=== PATIENT | female | born 1990 | race Caucasian/White ===

== ENCOUNTER 2020-01-27 16:59 | Observation (INO) ==
[~2020-01-27 16:59] MED LIST: NICOTINE 7 MG PATCH TOPICAL PRN
[2020-01-27] MEDS ORDERED: 0.9 % SODIUM CHLORIDE 1,000 ML IV ONE (17:18)
[2020-01-27] MEDS ORDERED: HYDROmorphone 0.5 MG/0.5 ML SYRINGE IV ONE ×2 (17:18→18:53)
[2020-01-27] MEDS ORDERED: ONDANSETRON 4 MG/2 ML VIAL IV ONE (17:18)
--- NOTE | 2020-01-27 17:23 | Emergency Department Note ---
Female Urogenital HPI General Chief complaint: Flank Pain Stated complaint: kidney stone in left, obstructing Time Seen by Provider: 01/27/20 17:07 Source: patient Mode of arrival: ambulatory Limitations: no limitations History of Present Illness HPI Narrative: Narrative: 29-year-old female patient referred to the emergency department by her urologist for possible admission. She has known renal stone disease. She was seen by the urologist (Dr. Combs) earlier today. During her work-up she had a x-ray KUB performed showing multiple nonobstructing renal stones. Patient has been nauseated and vomiting profusely today. She is not able to keep either foods or fluids down at this time. She has known history of aortic valve replacement and is currently anticoagulated on Coumadin. There is concern that this needs to be managed prior to any intervention for her renal calculi. Today, patient continues to complain of nausea upon presentation. She complains of moderate tenderness to the left side of her abdomen. ROS: Denies systemic illness, fever, sweats, chills. Denies headaches, tinnitus, or vision changes. Denies runny nose, sinus congestion, or cough. Denies shortness of breath. Denies retrosternal chest pain or palpitations. Admits to abdominal pain, nausea, vomiting, or diarrhea. Admits to mild dysuria. Denies hematuria, urinary frequency, or urinary urgency. Admits to generalized weakness. Related Data Home Medications Medication Instructions Recorded Confirmed warfarin 10 mg tablet 15 mg PO 3XW 09/16/18 01/27/20 Allergies Allergy/AdvReac Type Severity Reaction Status Date / Time No Known Drug Allergies Allergy Verified 01/27/20 17:04 Review of Systems ROS ROS Narrative: Narrative: All systems ED: reviewed and negative except as stated. [facility] Narrative Patient History Narrative: Narrative: Medical/Surgical/Family History All Active Problems UPJ (ureteropelvic junction) obstruction (Acute) Renal stones (Acute) Pyelonephritis (Acute) Status post laser lithotripsy of ureteral calculus (Acute) History of recurrent UTIs (Acute) UTI (urinary tract infection) (Acute) History of kidney stones (Acute) Left leg pain (Acute) Tobacco abuse (Chronic) Pulmonary edema (Chronic) SOB (shortness of breath) (Chronic) Ovarian cyst (Chronic) Multiple contusions (Chronic) Hematuria (Chronic) Ureterolithiasis (Chronic) Nephrolithiasis (Chronic) Suicidal thoughts (Chronic) Heart murmur (Chronic) Pelvic pain (Chronic) Menometrorrhagia (Chronic) Dysmenorrhea (Chronic) Depression with anxiety (Chronic) ADHD (Chronic) Bipolar 1 disorder (Chronic) Supervision of other high risk pregnancies, second trimester (Chronic) Presence of prosthetic heart valve (Chronic) On anticoagulant therapy (Chronic) Tobacco use disorder complicating , childbirth, or puerperium, antepartum (Chronic) Obesity complicating in second trimester (Chronic) Abdominal pain (Chronic) Pain, dental (Chronic) UTI (urinary tract infection) (Chronic) Finger pain, left (Chronic) Contusion (Chronic) Medical History Abdominal pain (Chronic) ADHD (Chronic) Bicuspid aortic valve (Chronic) Bipolar 1 disorder (Chronic) Contusion (Chronic) Depression with anxiety (Chronic) Dysmenorrhea (Chronic) Finger pain, left (Chronic) Heart murmur (Chronic) Hematuria (Chronic) Menometrorrhagia (Chronic) Multiple contusions (Chronic) Nephrolithiasis (Chronic) Obesity complicating in second trimester (Chronic) On anticoagulant therapy (Chronic) Ovarian cyst (Chronic) Pain, dental (Chronic) Pelvic pain (Chronic) Presence of prosthetic heart valve (Chronic) Pulmonary edema (Chronic) SOB (shortness of breath) (Chronic) Suicidal thoughts (Chronic) Supervision of other high risk pregnancies, second trimester (Chronic) Tobacco abuse (Chronic) Tobacco use disorder complicating , childbirth, or puerperium, antepartum (Chronic) Ureterolithiasis (Chronic) UTI (urinary tract infection) (Chronic) Surgical History H/O lithotripsy (Acute) History of aortic valve replacement (Chronic ~04/2017) History of laparoscopy (Chronic ~08/09/15) Negative for endometriosis Family History Mother Bile acid esophageal reflux Diabetes Hypertension Hypercholesteremia Stomach ulcer Ovarian cancer, Onset Age: 45 Grandmother , 70 CVA (cerebral vascular accident) Abnormal bruising Bleeding Clotting disorder Social History Smoking Status: Current every day smoker Alcohol Intake Frequency: does not drink Substance Use: does not use and marijuana Exam Narrative Narrative: Narrative: General Limitations: no limitations General appearance: Present other (Well-developed, well-nourished, morbidly obese 29-year-old female patient laying semirecumbent on the emergency room gurney in no acute distress. She is afebrile, mildly tachycardic with a heart rate of 102, her other vital signs are normal.) Head Head: Present normocephalic Eye Eye: Present normal appearance, PERRL and EOMI; Absent scleral icterus and conjunctival injection ENT ENT: Present normal oropharynx and mucous membranes moist Neck Neck: Present trachea midline; Absent lymphadenopathy and thyromegaly Chest Chest: Present symmetric chest wall rise Respiratory Respiratory: Present normal lung sounds bilaterally; Absent respiratory distress, wheezes, stridor, accessory muscle use and prolonged expiratory phase Cardiovascular Cardiovascular: Present regular rate, normal rhythm, systolic murmur and clicks; Absent diastolic murmur Adbominal Abdominal: Present soft, tenderness, normal bowel sounds and other (Patient body habitus is rather large making the abdominal exam difficult.); Absent distention, guarding, rebound and rigidity Expanded Abdominal Abdominal Tenderness: Present LLQ and moderate Extremities Extremities: Present normal inspection, full ROM and normal capillary refill Back Back: Present normal inspection and full ROM Neurological Neurological: Present alert and oriented X3 Psychiatric Psychiatric: Present normal affect and normal mood Skin Skin: Present warm (WNL), dry and normal color Course Course Course Narrative: Patient has known renal calculi and was just recently evaluated by her urologist today. A review of the urology note today Indicates the patient is suffering from UPJ obstruction on the left with likely renal stone. She is not tolerating oral fluids at home so it was thought best to try to admit her here to our facility. There is plan to try to aid place a stent tomorrow. Knowing this, I am going to order screening laboratory studies. We will also check a urine. No additional imaging is going to be performed because patient just had a x-ray KUB earlier today. She is nauseated somebody treat her with Zofran 4 mg IVP. We are to treat her pain with Dilaudid 0.5 mg IVP. I will rehydrate her with 1000 mL normal saline. Reevaluation(s) Reevaluation #1: Upon reevaluation patient was a bit uncomfortable and was given a second dose of Dilaudid 0.5 mg IVP. A review of her diagnostics show the following: CBC within normal limits. PT 16.6. INR 1.3. CMP within normal limits. Urinalysis showing cloudy yellow urine specific gravity 1.015, positive proteinuria, positive leukocyte Estrace, and significant RBCs. After reviewing all the data I discussed these findings with our hospitalist (Dr. Brewer) in order to get the patient admitted to the hospital for her renal stent tomorrow. At this time the hospitalist has consented to admit the patient here under observation. All further treatment decisions, modalities, and ultimate patient disposition will be carried out by the hospitalist. Time: 19:04 Vital Signs Vital signs: Vital Signs Temperature 98.3 F 01/27/20 17:00 Pulse Rate 102 H 01/27/20 17:00 Respiratory Rate 18 01/27/20 17:00 Blood Pressure 112/74 01/27/20 17:00 Pulse Oximetry (%) 99 01/27/20 17:00 Temperature 98.3 F 01/27/20 17:00 Pulse Rate 83 01/27/20 19:17 Respiratory Rate 18 01/27/20 17:00 Blood Pressure 117/70 01/27/20 19:17 Pulse Oximetry (%) 98 01/27/20 19:17 [facility] MDM Narrative Medical decision making narrative: Narrative: Lab Data Lab results reviewed: Yes I reviewed the patient's lab results. Result diagrams: 01/27/20 17:43 01/27/20 17:43 Labs: Lab Results 01/27/20 01/27/20 01/27/20 Range/Units 17:43 17:43 17:43 WBC 10.4 (4.5-11.0) K/mcL RBC 4.88 (4.00-5.20) M/mcL Hgb 13.3 (12.0-15.0) g/dL Hct 40.5 (36.0-48.0) % MCV 83.0 (80.0-100.0) fL MCH 27.3 (26.0-34.0) pg MCHC 32.8 (31.0-36.0) g/dL RDW 15.0 H (11.5-14.5) % Plt Count 223 (140-440) K/mcL MPV 10.7 H (7.4-10.4) fL Neut % (Auto) 76.8 (38.0-78.0) % Lymph % (Auto) 14.3 L (15.0-49.0) % [place] % (Auto) 6.4 (1.0-12.0) % Eos % (Auto) 1.9 (0.0-7.0) % Baso % (Auto) 0.6 (0.0-2.0) % Lymph # (Auto) 1.48 L (1.50-4.80) K/mcL [place] # (Auto) 0.66 (0.10-0.90) K/mcL Eos # (Auto) 0.20 (0.00-0.70) K/mcL Baso # (Auto) 0.06 (0.00-0.20) K/mcL Absolute Neutrophils 7.98 (1.80-8.00) K/mcL PT 16.6 H (11.9-14.5) sec INR 1.3 H (0.9-1.1) Sodium 136 (133-145) mmol/L Potassium 3.7 (3.3-5.1) mmol/L Chloride 104 (96-108) mmol/L Carbon Dioxide 24 (22-30) mmol/L Anion Gap 8.0 (8.0-16.0) BUN 17 (6-20) mg/dL Creatinine 0.7 (0.6-1.1) mg/dL GFR Calculation 118 Glucose 84 (70-105) mg/dL Calcium 9.1 (8.6-10.4) mg/dL Total Bilirubin 0.4 (0.1-1.0) mg/dL AST 20 (<32) U/L ALT 16 (<40) U/L Alkaline Phosphatase 79 (39-117) U/L Total Protein 7.3 (5.9-8.4) gm/dL Albumin 4.1 (3.2-5.2) gm/dL Globulin 3.2 (2.2-3.7) gm/dL Albumin/Globulin Ratio 1.3 (1.0-2.3) Urine Color Urine Appearance (Clear) Urine pH (5.0-9.0) Ur Specific [place] (1.000-1.035) Urine Protein (Negative) mg/dL Urine Glucose (UA) (Negative) mg/dL Urine Ketones (Negative) mg/dL Urine Occult Blood (Negative) mg/dL Urine Nitrate (Negative) Urine Bilirubin (Negative) mg/dL Urine Urobilinogen mg/dL Ur Leukocyte Esterase (Negative) /ug Urine RBC (0-1) /hpf Urine WBC (0-4) /hpf Ur Squamous Epith Cells (0-4) /hpf Urine Bacteria (0) /hpf Urine Mucus (None) /hpf Ur Culture Indicated? 01/27/20 Range/Units 19:04 WBC (4.5-11.0) K/mcL RBC (4.00-5.20) M/mcL Hgb (12.0-15.0) g/dL Hct (36.0-48.0) % MCV (80.0-100.0) fL MCH (26.0-34.0) pg MCHC (31.0-36.0) g/dL RDW (11.5-14.5) % Plt Count (140-440) K/mcL MPV (7.4-10.4) fL Neut % (Auto) (38.0-78.0) % Lymph % (Auto) (15.0-49.0) % [place] % (Auto) (1.0-12.0) % Eos % (Auto) (0.0-7.0) % Baso % (Auto) (0.0-2.0) % Lymph # (Auto) (1.50-4.80) K/mcL [place] # (Auto) (0.10-0.90) K/mcL Eos # (Auto) (0.00-0.70) K/mcL Baso # (Auto) (0.00-0.20) K/mcL Absolute Neutrophils (1.80-8.00) K/mcL PT (11.9-14.5) sec INR (0.9-1.1) Sodium (133-145) mmol/L Potassium (3.3-5.1) mmol/L Chloride (96-108) mmol/L Carbon Dioxide (22-30) mmol/L Anion Gap (8.0-16.0) BUN (6-20) mg/dL Creatinine (0.6-1.1) mg/dL GFR Calculation Glucose (70-105) mg/dL Calcium (8.6-10.4) mg/dL Total Bilirubin (0.1-1.0) mg/dL AST (<32) U/L ALT (<40) U/L Alkaline Phosphatase (39-117) U/L Total Protein (5.9-8.4) gm/dL Albumin (3.2-5.2) gm/dL Globulin (2.2-3.7) gm/dL Albumin/Globulin Ratio (1.0-2.3) Urine Color Yellow Urine Appearance Hazy A (Clear) Urine pH 6.0 (5.0-9.0) Ur Specific [place] 1.018 (1.000-1.035) Urine Protein 100 A (Negative) mg/dL Urine Glucose (UA) Negative (Negative) mg/dL Urine Ketones Negative (Negative) mg/dL Urine Occult Blood 0.20 (Negative) mg/dL Urine Nitrate Negative (Negative) Urine Bilirubin Negative (Negative) mg/dL Urine Urobilinogen Negative mg/dL Ur Leukocyte Esterase 75 A (Negative) /ug Urine RBC 49 H (0-1) /hpf Urine WBC 73 H (0-4) /hpf Ur Squamous Epith Cells 2 (0-4) /hpf Urine Bacteria Few A (0) /hpf Urine Mucus Few A (None) /hpf Ur Culture Indicated? yes Radiology Data Radiology results reviewed: Yes I reviewed the patient's radiology results. Radiology results narrative: Ordering Physician: Navi Combs M.D. Date of Service: 01/27/20 Procedure(s): XR abdomen 1V Accession Number(s): [id number] CLINICAL INFORMATION: Z87.442 Personal history of urinary calculi COMPARISON: 09/21/2019 FINDINGS: Two nonobstructing stones overlying the inferior calyx of the right kidney: 11 mm and 4 mm respectively. An 8 mm calcification overlies the inferior calyx of the left kidney. No stones overlie either ureter or urinary bladder. Left-sided pelvic phleboliths are stable. Stool gas pattern is normal. No free air, soft tissue mass or organomegaly. IMPRESSION: Two nonobstructing stones overlying the inferior calyx of the right kidney: 11 mm and 4 mm respectively. 8 mm nonobstructing calculus overlying inferior calyx of the left kidney. On the prior study, there were multiple stones overlying the inferior left renal pelvis and inferior calyces. Only the 8 mm solitary stone remains. The two right-sided stones are stable Interpreted and Authenticated by: Kedar Kyle 01/27/20 Discharge Plan Patient/Caregiver Discharge Instructions Pt seen by [employer]DER/PA only: Yes Clinical Impression: UPJ (ureteropelvic junction) obstruction, Renal stones, Abdominal pain Patient Disposition: Xfer As Outpt/Obs ([facility]) Condition: Good
[2020-01-27 18:22] LABS: Basophils # (Auto) 0.06 K/mcL (0.00-0.20); Basophils % (Auto) 0.6 % (0.0-2.0); Eosinophils % (Auto) 1.9 % (0.0-7.0); Hematocrit 40.5 % (36.0-48.0); Hemoglobin 13.3 g/dL (12.0-15.0); Lymphocytes # (Auto) 1.48 K/mcL (1.50-4.80); Lymphocytes % (Auto) 14.3 % (15.0-49.0); Mean Corpuscular HGB Conc 32.8 g/dL (31.0-36.0); Mean Platelet Volume 10.7 fL (7.4-10.4); Monocytes # (Auto) 0.66 K/mcL (0.10-0.90); Monocytes % (Auto) 6.4 % (1.0-12.0); Neutrophils % (Auto) 76.8 % (38.0-78.0); Platelet Count 223 K/mcL (140-440); RBC 4.88 M/mcL (4.00-5.20); WBC 10.4 K/mcL (4.5-11.0)
[2020-01-27 18:44] LABS: ALT/SGPT 16 U/L (<40); AST/SGOT 20 U/L (<32); Albumin 4.1 gm/dL (3.2-5.2); Albumin/Globulin Ratio 1.3 (1.0-2.3); Alkaline Phosphatase 79 U/L (39-117); Bilirubin,Total 0.4 mg/dL (0.1-1.0); Blood Urea Nitrogen 17 mg/dL (6-20); Calcium 9.1 mg/dL (8.6-10.4); Carbon Dioxide 24 mmol/L (22-30); Chloride 104 mmol/L (96-108); Globulin 3.2 gm/dL (2.2-3.7); Glomerular Filtration Rate 118; Glucose 84 mg/dL (70-105)
[2020-01-27 18:59] LABS: INR 1.3 (0.9-1.1); Prothrombin Time 16.6 sec (11.9-14.5)
[2020-01-27 19:24] LABS: Appearance,Urine HAZY (Clear); Bacteria,Urine FEW /hpf (0); Bilirubin,Urine Negative (Negative); Color,Urine YELLOW; Culture Indicated,Urine yes; Glucose,Urine (UA) Negative (Negative); Ketones,Urine Negative (Negative); Leukocyte Esterase,Urine 75 /ug (Negative); Mucus,Urine FEW /hpf; Nitrate,Urine Negative (Negative); Protein,Urine 100 mg/dL (Negative); Specific Gravity,Urine 1.018 (1.000-1.035); Urine RBC 49 /hpf (0-1); Urine Squamous Epithelial Cell 2 /hpf (0-4); Urine WBC 73 /hpf (0-4); Urobilinogen,Urine Negative
[2020-01-27] MEDS ORDERED: HYDROmorphone 1 MG/ML SYRINGE IV PRN (19:28)
[2020-01-27] MEDS ORDERED: ACETAMINOPHEN 325 MG TABLET PO PRN ×2 (19:28→20:31)
[2020-01-27] MEDS ORDERED: ONDANSETRON 4 MG/2 ML VIAL IV PRN (19:28)
[2020-01-27] MEDS ORDERED: oxyCODONE HCL 5 MG TABLET PO PRN (19:28)
[2020-01-27] MEDS ORDERED: cefTRIAXone 1 GM in DEXTROSE 5% IN WATER 50 ML IV SCH (19:30)
[2020-01-27] MEDS ORDERED: 0.9 % SODIUM CHLORIDE 1,000 ML IV SCH (19:30)
[2020-01-27] MEDS ORDERED: NICOTINE 7 MG PATCH TOPICAL PRN (19:34)
--- NOTE | 2020-01-27 19:44 | Internal Med History&Physical ---
HPI History of Present Illness Patient information: Note initiated : 01/27/20 at 7:40 pm Service Date, if different from initiated Date: [] Patient: Zeinab Morris a 29 y/o F admitted on for kidney stone in left, obstructing. Chief Complaint: [] History of present illness: Ms. Morris is a 29 year old F with a past medical history of recurrent kidney stone, currently smoker, morbid obesity, and status post mechanical aortic valve replacement on long-term anticoagulation with warfarin who was referred to the ER due to kidney stone, nausea and vomiting by urologist Dr. Combs. As per patient, she started to have constant left lower abdominal pain at about 9 PM yesterday afternoon associated with nausea and vomiting. The pain is sharp in nature and 6 out of 10 in severity, radiating to her back and perineal area. She has been having watery diarrhea 4 times a day for 4 days. When I saw in the ER, other than the symptoms mentioned above, she denied headache, dizziness, chest pain, shortness of breath, fever, chills, or dysuria. She underwent a surgery with Dr. Gunn 10/2019 for kidney stones. Patient has a history of bipolar disease and depression. She denies any suicidal ideation. Review of Systems Review of systems: Positive for abdominal pain, nausea, vomiting, and diarrhea. All other systems were reviewed and are negative. PFSH PFSH All Active Problems UPJ (ureteropelvic junction) obstruction (Acute) Renal stones (Acute) Pyelonephritis (Acute) Status post laser lithotripsy of ureteral calculus (Acute) History of recurrent UTIs (Acute) UTI (urinary tract infection) (Acute) History of kidney stones (Acute) Left leg pain (Acute) Tobacco abuse (Chronic) Pulmonary edema (Chronic) SOB (shortness of breath) (Chronic) Ovarian cyst (Chronic) Multiple contusions (Chronic) Hematuria (Chronic) Ureterolithiasis (Chronic) Nephrolithiasis (Chronic) Suicidal thoughts (Chronic) Heart murmur (Chronic) Pelvic pain (Chronic) Menometrorrhagia (Chronic) Dysmenorrhea (Chronic) Depression with anxiety (Chronic) ADHD (Chronic) Bipolar 1 disorder (Chronic) Supervision of other high risk pregnancies, second trimester (Chronic) Presence of prosthetic heart valve (Chronic) On anticoagulant therapy (Chronic) Tobacco use disorder complicating , childbirth, or puerperium, antepartum (Chronic) Obesity complicating in second trimester (Chronic) Abdominal pain (Chronic) Pain, dental (Chronic) UTI (urinary tract infection) (Chronic) Finger pain, left (Chronic) Contusion (Chronic) Medical History Abdominal pain (Chronic) ADHD (Chronic) Bicuspid aortic valve (Chronic) Bipolar 1 disorder (Chronic) Contusion (Chronic) Depression with anxiety (Chronic) Dysmenorrhea (Chronic) Finger pain, left (Chronic) Heart murmur (Chronic) Hematuria (Chronic) Menometrorrhagia (Chronic) Multiple contusions (Chronic) Nephrolithiasis (Chronic) Obesity complicating in second trimester (Chronic) On anticoagulant therapy (Chronic) Ovarian cyst (Chronic) Pain, dental (Chronic) Pelvic pain (Chronic) Presence of prosthetic heart valve (Chronic) Pulmonary edema (Chronic) SOB (shortness of breath) (Chronic) Suicidal thoughts (Chronic) Supervision of other high risk pregnancies, second trimester (Chronic) Tobacco abuse (Chronic) Tobacco use disorder complicating , childbirth, or puerperium, ante (Chronic) Ureterolithiasis (Chronic) UTI (urinary tract infection) (Chronic) Surgical History H/O lithotripsy (Acute) History of aortic valve replacement (Chronic ~04/2017) History of laparoscopy (Chronic ~08/09/15) Negative for endometriosis Family History Mother Bile acid esophageal reflux Diabetes Hypertension Hypercholesteremia Stomach ulcer Ovarian cancer, Onset Age: 45 Grandmother , 70 CVA (cerebral vascular accident) Abnormal bruising Bleeding Clotting disorder Social History marital status: single occupation: Stay at home mother physical activity: walking frequency: daily smoking status: Current every day smoker tobacco type: cigarettes per day: 10 pack-years: 18 alcohol intake frequency: does not drink substance use type: does not use and marijuana additional history: Patient smoke 2 "hits" of marijuana 3 weeks ago and nothing prior for 4 years. MEDS/ALLERGIES Home Medications and Allergies Home Medications Medication Instructions Recorded Confirmed Type warfarin 10 mg tablet 15 mg PO 3XW 09/16/18 01/27/20 History Allergies Allergy/AdvReac Type Severity Reaction Status Date / Time No Known Drug Allergies Allergy Verified 01/27/20 17:04 EXAM Constitutional Vitals: Temp Pulse Resp BP Pulse Ox 98.3 F 85 18 108/70 99 01/27/20 17:00 01/27/20 19:04 01/27/20 17:00 01/27/20 19:04 01/27/20 19:04 Additional findings Additional findings: General - No acute distress morbid obesity Eyes - PERRLA, EOM intact ENT no rhinorrhea, no noticeable or palpable swelling, no redness or rash around throat or on face Neck supple, no JVD, no thyromegaly Respiratory: Lungs -clear, no wheezing or crackles. Cardiovascular - RRR, mild to moderate systolic murmur, no r/g, GI - Normal bowel sounds, no distended, soft. Mild tenderness over left upper and left lower abdomen. Moderate to severe left CVA tenderness. Extremeties - No edema, cyanosis or clubbing Hemo/lymphatic/immune no lymphadenopathy Neurological Alert and oriented x 3, no focal neurological deficits. Psychiatry flat affect DATA Data Completed and Pending Labs: Labs from last 24 hours 01/27/20 01/27/20 01/27/20 19:04 17:43 17:43 WBC RBC Hgb Hct MCV MCH MCHC RDW Plt Count MPV Neut % (Auto) Lymph % (Auto) [place] % (Auto) Eos % (Auto) Baso % (Auto) Lymph # (Auto) [place] # (Auto) Eos # (Auto) Baso # (Auto) Absolute Neutrophils PT 16.6 H INR 1.3 H Sodium 136 Potassium 3.7 Chloride 104 Carbon Dioxide 24 Anion Gap 8.0 BUN 17 Creatinine 0.7 GFR Calculation 118 Glucose 84 Calcium 9.1 Total Bilirubin 0.4 AST 20 ALT 16 Alkaline Phosphatase 79 Total Protein 7.3 Albumin 4.1 Globulin 3.2 Albumin/Globulin Ratio 1.3 Urine Color Yellow Urine Appearance Hazy A Urine pH 6.0 Ur Specific [place] 1.018 Urine Protein 100 A Urine Glucose (UA) Negative Urine Ketones Negative Urine Occult Blood 0.20 Urine Nitrate Negative Urine Bilirubin Negative Urine Urobilinogen Negative Ur Leukocyte Esterase 75 A Urine RBC 49 H Urine WBC 73 H Ur Squamous Epith Cells 2 Urine Bacteria Few A Urine Mucus Few A Ur Culture Indicated? yes 01/27/20 17:43 WBC 10.4 RBC 4.88 Hgb 13.3 Hct 40.5 MCV 83.0 MCH 27.3 MCHC 32.8 RDW 15.0 H Plt Count 223 MPV 10.7 H Neut % (Auto) 76.8 Lymph % (Auto) 14.3 L [place] % (Auto) 6.4 Eos % (Auto) 1.9 Baso % (Auto) 0.6 Lymph # (Auto) 1.48 L [place] # (Auto) 0.66 Eos # (Auto) 0.20 Baso # (Auto) 0.06 Absolute Neutrophils 7.98 PT INR Sodium Potassium Chloride Carbon Dioxide Anion Gap BUN Creatinine GFR Calculation Glucose Calcium Total Bilirubin AST ALT Alkaline Phosphatase Total Protein Albumin Globulin Albumin/Globulin Ratio Urine Color Urine Appearance Urine pH Ur Specific [place] Urine Protein Urine Glucose (UA) Urine Ketones Urine Occult Blood Urine Nitrate Urine Bilirubin Urine Urobilinogen Ur Leukocyte Esterase Urine RBC Urine WBC Ur Squamous Epith Cells Urine Bacteria Urine Mucus Ur Culture Indicated? A/P Narrative A/P Narrative: 1. Ureteropelvic junction stone 2. Recurrent nephrolithiasis 3. Hydronephrosis, left Urology Dr. Combs consult Will possibly have will a stent placement tomorrow N.p.o. after midnight IV fluid Pain management including IV Dilaudid Patient is on anticoagulation, INR 1.3 today 4. Tobacco dependence Smoking cessation counseling Nicotine patch 5. 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 Subtherapeutic INR Patient has been on Coumadin, INR 1.3 today. Due to recent TURP procedure, she stopped and restarted warfarin recently INR target range 2.5-3.5 Continue warfarin, dosing by pharmacy 7. Morbid obesity Follow up with PCP 8. Dehydration IV fluid 9. UTI? Urine culture Rocephin 10. Proteinuria and hematuria will treat UTI and kidney stone first f/u with pcp and repeat UA afterwards 11. Diarrhea C. difficile IV fluid 12. DVT prophylaxis: Warfarin 13. CODE STATUS: Cold Reduction Roller Spent With Patient Time: Total time spent is greater than 50% in coordination of care (as documented) at patient's floor/unit and/or counseling patient:
[2020-01-27] MEDS ORDERED: WARFARIN PO SCH ×2 (19:45→20:31)
[2020-01-27] MEDS: 0.9 % SODIUM CHLORIDE 1,000 ML IV SCH (20:44)
[2020-01-27] MEDS: cefTRIAXone 1 GM VIAL IV SCH (20:45)
[2020-01-27] MEDS: 0.9 % SODIUM CHLORIDE 10 ML SYRINGE IV SCH (20:54)
[2020-01-27] MEDS: oxyCODONE HCL 5 MG TABLET PO PRN (21:00)
[2020-01-27] MEDS ORDERED: DOCUSATE SODIUM 100 MG CAPSULE PO SCH (21:00)
[2020-01-27] MEDS: HYDROmorphone 1 MG/ML SYRINGE IV PRN (21:01)
[2020-01-27] MEDS: DOCUSATE SODIUM 100 MG CAPSULE PO SCH (21:06)
[2020-01-27] MEDS ORDERED: 0.9 % SODIUM CHLORIDE 10 ML SYRINGE IV SCH (22:00)
[2020-01-28] MEDS: oxyCODONE HCL 5 MG TABLET PO PRN (01:18)
[2020-01-28] MEDS: HYDROmorphone 1 MG/ML SYRINGE IV PRN ×6 (01:33→15:38)
[2020-01-28] MEDS: ONDANSETRON 4 MG/2 ML VIAL IV PRN ×2 (01:34→11:35)
[2020-01-28] MEDS: 0.9 % SODIUM CHLORIDE 10 ML SYRINGE IV SCH ×2 (05:26→13:55)
[2020-01-28 06:32] LABS: Basophils # (Auto) 0.05 K/mcL (0.00-0.20); Basophils % (Auto) 0.5 % (0.0-2.0); Eosinophils # (Auto) 0.35 K/mcL (0.00-0.70); Eosinophils % (Auto) 3.4 % (0.0-7.0); Hematocrit 35.7 % (36.0-48.0); Hemoglobin 11.5 g/dL (12.0-15.0); Lymphocytes # (Auto) 2.07 K/mcL (1.50-4.80); Lymphocytes % (Auto) 19.9 % (15.0-49.0); Mean Corpuscular HGB Conc 32.2 g/dL (31.0-36.0); Mean Platelet Volume 10.7 fL (7.4-10.4); Monocytes # (Auto) 0.75 K/mcL (0.10-0.90); Monocytes % (Auto) 7.2 % (1.0-12.0); Platelet Count 202 K/mcL (140-440); Red Cell Distribution Width 15.1 % (11.5-14.5); WBC 10.4 K/mcL (4.5-11.0)
[2020-01-28 07:02] LABS: ALT/SGPT 13 U/L (<40); AST/SGOT 15 U/L (<32); Albumin 3.6 gm/dL (3.2-5.2); Albumin/Globulin Ratio 1.5 (1.0-2.3); Alkaline Phosphatase 67 U/L (39-117); Bilirubin,Total 0.4 mg/dL (0.1-1.0); Blood Urea Nitrogen 16 mg/dL (6-20); Calcium 8.3 mg/dL (8.6-10.4); Carbon Dioxide 22 mmol/L (22-30); Chloride 107 mmol/L (96-108); Globulin 2.4 gm/dL (2.2-3.7); Glomerular Filtration Rate 118; Glucose 91 mg/dL (70-105); Phosphorous 3.2 mg/dL (2.5-4.5)
[2020-01-28] MEDS: 0.9 % SODIUM CHLORIDE 1,000 ML IV SCH (08:34)
[2020-01-28] MEDS: cefTRIAXone 1 GM VIAL IV SCH (09:03)
[2020-01-28] MEDS: DOCUSATE SODIUM 100 MG CAPSULE PO SCH (10:12)
[2020-01-28 10:27] LABS: INR 1.2 (0.9-1.1); Prothrombin Time 15.5 sec (11.9-14.5)
[2020-01-28 11:41] LABS: HCG,Serum Negative
--- NOTE | 2020-01-28 15:48 | Internal Med Progress Note ---
SUBJECTIVE Subjective Patient information: Note initiated : 01/28/20 at 3:44 pm Service Date, if different from initiated Date: [] Patient: Zeinab Morris a 29 y/o F admitted on 01/27/20 for kidney stone in left, obstructing. Chief Complaint: [] Ms. Morris is a 29 year old F with a past medical history of recurrent kidney stone, currently smoker, morbid obesity, and status post mechanical aortic valve replacement on long-term anticoagulation with warfarin who was referred to the ER due to kidney stone, nausea and vomiting by urologist Dr. Combs. As per patient, she started to have constant left lower abdominal pain at about 9 PM yesterday afternoon associated with nausea and vomiting. The pain is sharp in nature and 6 out of 10 in severity, radiating to her back and perineal area. She has been having watery diarrhea 4 times a day for 4 days. When I saw in the ER, other than the symptoms mentioned above, she denied headache, dizziness, chest pain, shortness of breath, fever, chills, or dysuria. She underwent a surgery with Dr. Gunn 10/2019 for kidney stones. Patient has a history of bipolar disease and depression. She denies any suicidal ideation. 01/27 Pt feels better, still has pain, less in severity. Has one BM this morning. has mild n but has not vomited. She will have stent placement today by Dr. Combs. No overnight event Review of Systems Review of systems: Positive for abdominal pain, nausea, vomiting, and diarrhea. All other systems were reviewed and are negative. Constitutional Vitals: Vital Signs Temp Pulse Resp BP Pulse Ox 97.9 F 67 16 107/65 91 01/28/20 12:00 01/28/20 12:00 01/28/20 12:00 01/28/20 12:00 01/28/20 12:00 Period Temp Pulse Resp BP Sys/Amaya Pulse Ox Last 24 Hr 97.3 F-98.3 F 67-102 16-18 98-119/60-85 91-100 Intake and Output 01/28/20 01/28/20 01/28/20 05:59 13:59 21:59 Intake Total 777 712 Output Total 600 200 200 Balance 177 512 -200 Intake & Output: Intake & Output 01/28/20 01/28/2001/27/20 05:59 13:59 21:59 Intake Total 777 712 Output Total 600 200 200 Balance 177 512 -200 Intake: IV 277 712 Sodium Chloride 0.9% 1,000 ml @ 277 712 100 mls/hr IV .Q10H [facility] Rx#: [id number] Oral 500 Output: Void Amount 600 200 200 Other: Urine Appearance Clear Urine Color Bright Yellow Additional findings Additional findings: General - No acute distress morbid obesity Eyes - PERRLA, EOM intact ENT no rhinorrhea, no noticeable or palpable swelling, no redness or rash around throat or on face Neck supple, no JVD, no thyromegaly Respiratory: Lungs -clear, no wheezing or crackles. Cardiovascular - RRR, mild to moderate systolic murmur, no r/g, GI - Normal bowel sounds, no distended, soft. Mild tenderness over left upper and left lower abdomen. Moderate to severe left CVA tenderness (improving). Extremeties - No edema, cyanosis or clubbing Hemo/lymphatic/immune no lymphadenopathy Neurological Alert and oriented x 3, no focal neurological deficits. Psychiatry flat affect OBJ DATA Labs CBC & Chem 7: 01/28/20 05:17 01/28/20 05:17 Labs: Abnormal Lab Results 01/28/20 01/28/20 01/28/20 08:57 05:17 05:17 Hgb 11.5 L Hct 35.7 L RDW 15.1 H MPV 10.7 H Lymph % (Auto) Lymph # (Auto) PT 15.5 H INR 1.2 H Calcium 8.3 L Urine Appearance Urine Protein Ur Leukocyte Esterase Urine RBC Urine WBC Urine Bacteria Urine Mucus 01/27/20 01/27/20 01/27/20 19:04 17:43 17:43 Hgb Hct RDW 15.0 H MPV 10.7 H Lymph % (Auto) 14.3 L Lymph # (Auto) 1.48 L PT 16.6 H INR 1.3 H Calcium Urine Appearance Hazy A Urine Protein 100 A Ur Leukocyte Esterase 75 A Urine RBC 49 H Urine WBC 73 H Urine Bacteria Few A Urine Mucus Few A Meds: Medications Acetaminophen (Tylenol) 650 mg PO Q6HP PRN; Protocol PRN Reason: Per Pain Protocol/Fever > 101 Last Admin: 01/28/20 13:54 Dose: 650 mg Documented by: Ceftriaxone Sodium (Rocephin) 1 gm IV Q24H [facility] Last Admin: 01/28/20 09:03 Dose: 1 gm Documented by: Docusate Sodium (Colace) 100 mg PO BID [facility] Last Admin: 01/28/20 10:12 Dose: Not Given Documented by: Hydromorphone HCl (Dilaudid) 1 mg IV Q2HP PRN; Protocol PRN Reason: Per Pain Protocol Last Admin: 01/28/20 15:38 Dose: 1 mg Documented by: Sodium Chloride (Sodium Chloride 0.9%) 1,000 mls @ 100 mls/hr IV .Q10H [facility] Last Admin: 01/28/20 08:34 Dose: 100 mls/hr Documented by: Nicotine (Nicoderm) 7 mg TOPICAL DAILY@1000 PRN PRN Reason: Anxiety Ondansetron HCl (Zofran) 4 mg IV Q6HP PRN PRN Reason: Nausea And Vomiting Last Admin: 01/28/20 11:35 Dose: 4 mg Documented by: Oxycodone HCl (Roxicodone) 5 mg PO Q4HP PRN; Protocol PRN Reason: Per Pain Protocol Last Admin: 01/28/20 01:18 Dose: 5 mg Documented by: Sodium Chloride (Saline Flush) 10 ml IV Q8 [facility] Last Admin: 01/28/20 13:55 Dose: Not Given Documented by: Warfarin Sodium (Coumadin Per Pharmacy) 1 order PO DAILY@1400 [facility] Last Admin: 01/28/20 13:54 Dose: Not Given Documented by: A/P Narrative A/P Narrative: 1. Ureteropelvic junction stone 2. Recurrent nephrolithiasis 3. Hydronephrosis, left Urology Dr. Combs consult Will possibly have will a stent placement tomorrow N.p.o. after midnight IV fluid Pain management including IV Dilaudid Patient is on anticoagulation, INR 1.3 today 4. Tobacco dependence Smoking cessation counseling Nicotine patch 5. S/p mechanical aortic valve repacement on tank terminal gauger anticoagulation 6. Subtherapeutic INR Patient has been on Coumadin, INR 1.3 today. Due to recent TURP procedure, she stopped and restarted warfarin recently INR target range 2.5-3.5 Continue warfarin, dosing by pharmacy 7. Morbid obesity Follow up with PCP 8. Dehydration IV fluid 9. UTI? Urine culture Yoshin 10. Proteinuria and hematuria will treat UTI and kidney stone first f/u with pcp and repeat UA afterwards 11. Diarrhea C. difficile IV fluid 12. DVT prophylaxis: Warfarin 13. CODE STATUS: [employer] Work[employer] Spent With Patient Time: Total time spent is greater than 50% in coordination of care (as documented) at patient's floor/unit and/or counseling patient: QUALITY VTE Deep Vein Thrombosis/Pulmonary Embolism Present on Admission: No
[2020-01-28] MEDS ORDERED: ceFAZolin 3 GM in DEXTROSE 5% IN WATER 50 ML IV SCH (16:30)
--- NOTE | 2020-01-28 16:32 | Internal Medicine Consult Note ---
HPI Data of Consult Consult date: 01/28/20 Primary Care Provider: FRAN Pierce Consult Narrative History of present illness: 29 y.o. with METAL AORTIC VALVE female with stone surgery with Dr. Gunn this summer and mention of left UPJO. Now repeated episodes left renal colic and rare right flank pain. CT scan revealed her left UPJ and some stones in renal pelvis. She reports significant left pain if she drinks fluids to fast/ copious amounts for at least the last several months . She reports she had a nuc med lasix renogram with Dr. Gunn and was told her kidneys had unequal function but no intervention was needed. Report obtained from [facility]. LASIX RENOGRAM 09/28/2019: Left 61.1% and unable to calculate a T1/2 time with delayed uptake and excretion with hydronephrosis Right 38.9 % with T 1/2 time 18.5 Cr 0.7, WBC 10 She was seen in the office yesterday and was not able to tolerate PO due to nausea, emesis and pain on the left. Admitted for IVF, antibiotics and plans for bilateral retrograde pyelogram and left stent placement. cc:: CC: Krystian Brewer Constitutional Constitutional: Present malaise; Absent fever(s) and weakness EENT Eyes: Absent dry eye, irritation and loss of vision Cardiovascular Cardiovascular: Absent chest pain at rest, claudication and dyspnea on exertion Respiratory Respiratory: Absent cough, dyspnea on exertion and wheezing Gastrointestinal Gastrointestinal: Present as per HPI Genitourinary Genitourinary: Present as per HPI Musculoskeletal Musculoskeletal: Absent muscle weakness, numbness and tingling Integumentary Integumentary: Absent new lesions, pruritus and jaundice Neurological Neurological: Absent numbness, tingling and weakness Psychiatric Psychiatric: Absent confusion, depression and difficulty concentrating Endocrine Endocrine: Absent palpitations, polydipsia and polyuria Hematologic/Lymphatic Hematologic/Lymphatic: Present easy bleeding and easy bruising; Absent lymphadenopathy Allergic/Immunologic Allergic/Immunologic: Absent itchy eyes, uticaria and wheezing PFSH PFSH All Active Problems UPJ (ureteropelvic junction) obstruction (Acute) Renal stones (Acute) Pyelonephritis (Acute) Status post laser lithotripsy of ureteral calculus (Acute) History of recurrent UTIs (Acute) UTI (urinary tract infection) (Acute) History of kidney stones (Acute) Left leg pain (Acute) Tobacco abuse (Chronic) Pulmonary edema (Chronic) SOB (shortness of breath) (Chronic) Ovarian cyst (Chronic) Multiple contusions (Chronic) Hematuria (Chronic) Ureterolithiasis (Chronic) Nephrolithiasis (Chronic) Suicidal thoughts (Chronic) Heart murmur (Chronic) Pelvic pain (Chronic) Menometrorrhagia (Chronic) Dysmenorrhea (Chronic) Depression with anxiety (Chronic) ADHD (Chronic) Bipolar 1 disorder (Chronic) Supervision of other high risk pregnancies, second trimester (Chronic) Presence of prosthetic heart valve (Chronic) On anticoagulant therapy (Chronic) Tobacco use disorder complicating , childbirth, or puerperium, antepartum (Chronic) Obesity complicating in second trimester (Chronic) Abdominal pain (Chronic) Pain, dental (Chronic) UTI (urinary tract infection) (Chronic) Finger pain, left (Chronic) Contusion (Chronic) Medical History Abdominal pain (Chronic) ADHD (Chronic) Bicuspid aortic valve (Chronic) Bipolar 1 disorder (Chronic) Contusion (Chronic) Depression with anxiety (Chronic) Dysmenorrhea (Chronic) Finger pain, left (Chronic) Heart murmur (Chronic) Hematuria (Chronic) Menometrorrhagia (Chronic) Multiple contusions (Chronic) Nephrolithiasis (Chronic) Obesity complicating in second trimester (Chronic) On anticoagulant therapy (Chronic) Ovarian cyst (Chronic) Pain, dental (Chronic) Pelvic pain (Chronic) Presence of prosthetic heart valve (Chronic) Pulmonary edema (Chronic) SOB (shortness of breath) (Chronic) Suicidal thoughts (Chronic) Supervision of other high risk pregnancies, second trimester (Chronic) Tobacco abuse (Chronic) Tobacco use disorder complicating , childbirth, or puerperium, antepartum (Chronic) Ureterolithiasis (Chronic) UTI (urinary tract infection) (Chronic) Surgical History H/O lithotripsy (Acute) History of aortic valve replacement (Chronic ~04/2017) History of laparoscopy (Chronic ~08/09/15) Negative for endometriosis Family History Mother Bile acid esophageal reflux Diabetes Hypertension Hypercholesteremia Stomach ulcer Ovarian cancer, Onset Age: 45 Grandmother , 70 CVA (cerebral vascular accident) Abnormal bruising Bleeding Clotting disorder Social History marital status: single occupation: Stay at home mother physical activity: walking frequency: daily smoking status: Current every day smoker tobacco type: cigarettes per day: 10 pack-years: 18 alcohol intake frequency: does not drink substance use type: does not use and marijuana additional history: Patient smoke 2 "hits" of marijuana 3 weeks ago and nothing prior for 4 years. MEDS/ALLERGIES Home Medications and Allergies Home Medications Medication Instructions Recorded Confirmed Type warfarin 10 mg tablet 15 mg PO Q48H 09/16/18 01/27/20 History warfarin 10 mg PO Q48H 01/27/20 01/27/20 History Allergies Allergy/AdvReac Type Severity Reaction Status Date / Time No Known Drug Allergies Allergy Verified 01/27/20 17:04 EXAM Constitutional Vitals: Temp Pulse Resp BP Pulse Ox 97.9 F 67 16 107/65 91 01/28/20 12:00 01/28/20 12:00 01/28/20 12:00 01/28/20 12:00 01/28/20 12:00 General appearance: cooperative and mild distress; no disheveled Head Head exam: Present atraumatic, normal inspection and normocephalic Eye Eye exam: Present EOMI and normal appearance; Absent scleral icterus Respiratory Respiratory exam: Absent accessory muscle use, respiratory distress and wheezes Cardiovascular Cardiovascular exam: Present RRR GI/Abdominal Additional comments: Left CVA tenderness Additional comments: left CVA tenderness Neurological Exam Neurological exam: Present alert and oriented X3 Psychiatric Psychiatric exam: Present normal affect and normal mood; Absent agitated and anxious DATA Data Completed and Pending Labs: Labs from last 24 hours 01/28/20 01/28/20 01/28/20 09:29 08:57 05:17 WBC RBC Hgb Hct MCV MCH MCHC RDW Plt Count MPV Neut % (Auto) Lymph % (Auto) [place] % (Auto) Eos % (Auto) Baso % (Auto) Lymph # (Auto) [place] # (Auto) Eos # (Auto) Baso # (Auto) Absolute Neutrophils PT 15.5 H INR 1.2 H Sodium 137 Potassium 4.0 Chloride 107 Carbon Dioxide 22 Anion Gap 8.0 BUN 16 Creatinine 0.7 GFR Calculation 118 Glucose 91 Calcium 8.3 L Phosphorus 3.2 Magnesium 2.0 Total Bilirubin 0.4 AST 15 ALT 13 Alkaline Phosphatase 67 Total Protein 6.0 Albumin 3.6 Globulin 2.4 Albumin/Globulin Ratio 1.5 HCG, Qual Negative Urine Color Urine Appearance Urine pH Ur Specific [place] Urine Protein Urine Glucose (UA) Urine Ketones Urine Occult Blood Urine Nitrate Urine Bilirubin Urine Urobilinogen Ur Leukocyte Esterase Urine RBC Urine WBC Ur Squamous Epith Cells Urine Bacteria Urine Mucus Ur Culture Indicated? SARS-CoV-2 (PCR) 01/28/20 01/27/20 01/27/20 05:17 23:31 19:04 WBC 10.4 RBC 4.30 Hgb 11.5 L Hct 35.7 L MCV 83.0 MCH 26.7 MCHC 32.2 RDW 15.1 H Plt Count 202 MPV 10.7 H Neut % (Auto) 69.0 Lymph % (Auto) 19.9 [place] % (Auto) 7.2 Eos % (Auto) 3.4 Baso % (Auto) 0.5 Lymph # (Auto) 2.07 [place] # (Auto) 0.75 Eos # (Auto) 0.35 Baso # (Auto) 0.05 Absolute Neutrophils 7.20 PT INR Sodium Potassium Chloride Carbon Dioxide Anion Gap BUN Creatinine GFR Calculation Glucose Calcium Phosphorus Magnesium Total Bilirubin AST ALT Alkaline Phosphatase Total Protein Albumin Globulin Albumin/Globulin Ratio HCG, Qual Urine Color Yellow Urine Appearance Hazy A Urine pH 6.0 Ur Specific [place] 1.018 Urine Protein 100 A Urine Glucose (UA) Negative Urine Ketones Negative Urine Occult Blood 0.20 Urine Nitrate Negative Urine Bilirubin Negative Urine Urobilinogen Negative Ur Leukocyte Esterase 75 A Urine RBC 49 H Urine WBC 73 H Ur Squamous Epith Cells 2 Urine Bacteria Few A Urine Mucus Few A Ur Culture Indicated? yes SARS-CoV-2 (PCR) Negative 01/27/20 01/27/20 01/27/20 17:43 17:43 17:43 WBC 10.4 RBC 4.88 Hgb 13.3 Hct 40.5 MCV 83.0 MCH 27.3 MCHC 32.8 RDW 15.0 H Plt Count 223 MPV 10.7 H Neut % (Auto) 76.8 Lymph % (Auto) 14.3 L [place] % (Auto) 6.4 Eos % (Auto) 1.9 Baso % (Auto) 0.6 Lymph # (Auto) 1.48 L [place] # (Auto) 0.66 Eos # (Auto) 0.20 Baso # (Auto) 0.06 Absolute Neutrophils 7.98 PT 16.6 H INR 1.3 H Sodium 136 Potassium 3.7 Chloride 104 Carbon Dioxide 24 Anion Gap 8.0 BUN 17 Creatinine 0.7 GFR Calculation 118 Glucose 84 Calcium 9.1 Phosphorus Magnesium Total Bilirubin 0.4 AST 20 ALT 16 Alkaline Phosphatase 79 Total Protein 7.3 Albumin 4.1 Globulin 3.2 Albumin/Globulin Ratio 1.3 HCG, Qual Urine Color Urine Appearance Urine pH Ur Specific [place] Urine Protein Urine Glucose (UA) Urine Ketones Urine Occult Blood Urine Nitrate Urine Bilirubin Urine Urobilinogen Ur Leukocyte Esterase Urine RBC Urine WBC Ur Squamous Epith Cells Urine Bacteria Urine Mucus Ur Culture Indicated? SARS-CoV-2 (PCR) A/P Narrative A/P Narrative: 1) left ureteropelvic junction obstruction: -her left kidney is 61% of her function and is significantly obstructed leading to pain and emesis -plan for left stent -she will need a surgical repair and will send her out to see if such can be done robotically 2) right ureteropelvic junction obstruction: -she is mildly symptomatic on this side with a T 1/2 of 18.5 -will plan for a retrograde and she may need eventual repair/stent on this side as well 3) bilateral renal stones: -these can be addressed with her definitive UPJ repairs Time Spent With Patient Time: Total time spent is greater than 50% in coordination of care (as documented) at patient's floor/unit and/or counseling patient:
[2020-01-28] MEDS ORDERED: ONDANSETRON 4 MG/2 ML VIAL ONE (17:30)
[2020-01-28] MEDS ORDERED: LIDOCAINE HCL/PF 100 MG/5 ML SYRINGE IV ONE (17:30)
[2020-01-28] MEDS ORDERED: ePHEDrine 50 MG/ML AMPUL IV ONE (17:30)
[2020-01-28] MEDS ORDERED: PROPOFOL 200 MG/20 ML VIAL IV ONE (17:30)
[2020-01-28] MEDS ORDERED: MIDAZOLAM 5 MG/5 ML VIAL ONE (17:30)
[2020-01-28] MEDS ORDERED: DEXAMETHASONE 10 MG/ML VIAL ONE (17:30)
[2020-01-28] MEDS ORDERED: IOVERSOL 20 ML VIAL IJ ONE (17:39)
[2020-01-28] MEDS ORDERED: PROMETHAZINE 25 MG/ML VIAL IV PRN (17:46)
[2020-01-28] MEDS ORDERED: MEPERIDINE 25 MG/ML SYRINGE IV PRN (17:46)
[2020-01-28] MEDS ORDERED: FLUMAZENIL 0.1 MG/ML ML IV PRN (17:46)
[2020-01-28] MEDS ORDERED: NALOXONE HCL 0.4 MG/ML VIAL IV PRN (17:46)
[2020-01-28] MEDS ORDERED: diphenhydrAMINE 50 MG/ML VIAL IV PRN (17:46)
[2020-01-28] MEDS ORDERED: IPRATROPIUM/ALBUTEROL 3 ML AMPUL.NEB NEB PRN (17:46)
[2020-01-28] MEDS ORDERED: LACTATED RINGERS 250 ML IV PRN (17:46)
[2020-01-28] MEDS ORDERED: ONDANSETRON 4 MG/2 ML VIAL IV PRN ×2 (17:46→18:22)
[2020-01-28] MEDS ORDERED: LACTATED RINGERS 1,000 ML IV SCH (18:00)
--- NOTE | 2020-01-28 18:07 | Brief Operative Note ---
Brief Operative Note Date of procedure: 01/28/20 Pre-op diagnosis: left flank pain Post-op diagnosis: other (bilateral left > right ureteropelvic junction obstruction ) Procedure: bilateral retrograde pyelograms, left ureteral stent placed Grafts/Implants: Yes (6 set[place] 26 cm left uerteral stent) Anesthesia: GETA Findings: Marked left hydronephrosis and radiographic evidence left ureteropelvic junction obstruction. Right mild hydronephrosis with radiographic evidence right moderate ureteropelvic junction obstruction. Delayed images show drainage on the right. Complications: none Surgeon: Navi Combs Specimens Removed/Pathology: none sent Condition: stable Disposition: PACU
[2020-01-28] MEDS: fentaNYL 100 MCG/2 ML VIAL IV PRN ×2 (18:12→18:14)
--- NOTE | 2020-01-28 18:21 | Discharge Plan ---
Discharge Plan Patient/Caregiver Discharge Instructions Activity: increase activity as tolerated Diet: Regular Diet Activity Restrictions/Additional Instructions: You have ureteropelvic junction obstruction on both sides. The left side is severe and should be corrected. The right side is more moderate but still may need to be corrected. The left ureteral stent is good form 3-6 months but then MUST be exchanged routinely (or removed) until you have surgery to correct the left side. If this is not done, the stent can calcify in place leading to severe infection, renal failure, kidney loss or even . Follow up 1-2 weeks to assess how you are doing and get you set up with a surgeon in [place] for repair. -Drink plenty of water -see if your left pain subsides -pay attention to how often you have pain on the right, especially when you push fluids -if need be we can place a stent on the right as well Prescriptions: No Action warfarin 10 mg tablet 15 mg PO Q48H RF: 0 warfarin 10 mg Tablet 10 mg PO Q48H RF: 0 Follow Up Plan Follow up with: Mihir Greenfield ARNP [Primary Care Provider] - Patient Disposition: Home, Self-Care Prognosis: Good Discharge Orders: Discharge Order (Routine); Ordered 01/28/20 Ordered By: Navi Combs
[2020-01-28] MEDS ORDERED: morphine 2 MG/ML VIAL IV PRN (18:22)
[2020-01-28] MEDS ORDERED: PHENAZOPYRIDINE 200 MG PO ONE (18:22)
[2020-01-28] MEDS ORDERED: HYDROcodone/APAP 5/325MG TABLET PO PRN (18:22)
[2020-01-28] MEDS ORDERED: cefTRIAXone 1 GM in DEXTROSE 5% IN WATER 50 ML IV SCH (19:30)
[2020-01-28] MEDS ORDERED: ACETAMINOPHEN 1,000 MG/100 ML BOTTLE IV ONE (20:00)
[2020-01-28] MEDS ORDERED: 0.9 % SODIUM CHLORIDE 10 ML SYRINGE IV SCH (22:00)
--- NOTE | 2020-01-29 04:45 | XRay Report ---
CLINICAL INFORMATION: ureteroscopy COMPARISON: None. FINDINGS: Bilateral retrograde pyelograms were performed. The right upper collecting system is grossly normal. Left upper collecting system demonstrates moderate hydronephrosis. A stent was successfully placed: The superior stent overlying the renal pelvis on the final image. IMPRESSION: Moderate left hydronephrosis successfully treated with left ureteral stent. Interpreted and Authenticated by: Kedar Kyle 01/29/20
--- NOTE | 2020-01-29 19:36 | Operative Note ---
Operative Note Operative Note: Date of procedure: 01/28/20 Pre-op diagnosis: left flank pain Post-op diagnosis: other (bilateral left > right ureteropelvic junction obstruction ) Procedure: bilateral retrograde pyelograms, left ureteral stent placed Grafts/Implants: Yes (6 [place] 26 cm left uerteral stent) Anesthesia: GETA Findings: Marked left hydronephrosis and radiographic evidence left ureteropelvic junction obstruction. Right mild hydronephrosis with radiographic evidence right moderate ureteropelvic junction obstruction. Delayed images show drainage on the right. Complications: none Surgeon: Navi Combs Specimens Removed/Pathology: none sent Condition: stable Disposition: PACU 29-year-old female with significant left ureteropelvic junction obstruction and more moderate right ureteropelvic junction obstruction. She is significantly symptomatic on the left and here for urgent evaluation and stent placement. Plan is for bilateral retrograde pyelograms as well for diagnostic imaging. Informed consent was obtained and preoperative antibiotics were given. Patient was taken to the operative suite and placed on the table in the supine position. Adequate anesthesia was initiated. Patient was then placed in the dorsolithotomy position and prepped and draped in the usual sterile fashion. We began the procedure with a 21 [place] cystoscope and 30 degree lens which was guided into the urethra and bladder. The bladder was seen to be within normal limits. The right ureteral orifice was identified and cannulated with a cone- tipped catheter and radiopaque contrast material was installed under fluoroscopy to delineate the anatomy. Right retrograde pyelogram. The right ureter was seen to be of normal caliber and contour. At the right ureteropelvic junction there was a distinct narrowing and then a contrast jet into the renal pelvis. There is minimal to moderate hydronephrosis seen. This was treated on the left-hand side. The left ureter was cannulated with a cone-tipped catheter and radiopaque contrast material was installed under fluoroscopic guidance. The left distal ureter up to the ureteropelvic junction was seen to be within normal limits and there was a distinct narrowing at the ureteropelvic junction and a contrast jet was seen into the massively dilated and hydronephrotic renal pelvis and calyces. Drainage films were obtained. There is minimal drainage on the left-hand side, and more prompt and good drainage on the right. We then proceeded with a left stent placement. A stiff body Glidewire was placed up into the left renal pelvis and in the usual [place] fashion a 6 [place] 26 cm double-J ureteral stent was placed and seemed to coil adequately in the left renal pelvis under fluoroscopy and in the bladder under direct vision. There was a brisk hydronephrotic drip down the stent of clear urine. The bladder was drained. Patient went to recovery room in good condition. In recovery room she reported her left side pain was improved with stent placement.
--- NOTE | 2020-01-29 21:33 | Discharge Summary ---
Discharge Provider Provider Patient information: Note initiated : 01/29/20 at 9:32 pm Service Date, if different from initiated Date: [] Patient: Zeinab Morris a 29 y/o F admitted on 01/27/20 for kidney stone in left, obstructing. Chief Complaint: [] Date of admission: 01/27/20 20:25 Discharge date: 01/28/20 Primary care physician: FRAN Pierce Consults: 01/27/20 Consult to Physician [CONS] Stat Comment: Consulting Provider: Krystian Brewer Reason For Exam: Physician to Consult 01/27/20 19:33 Consult to Physician [CONS] Routine Comment: Consulting Provider: Navi Combs Reason For Exam: Physician to Consult Discharge Meds Discharge Medications Home Medications warfarin 10 mg tablet 15 mg PO Q48H 09/16/18 [History Confirmed 01/27/20 Last Taken 01/25/20 21:00] warfarin 10 mg PO Q48H 01/27/20 [History Confirmed 01/27/20 Last Taken 01/26/20 21:00] oxycodone 5 mg PO Q4HP PRN #16 tab 01/29/20 [Rx Last Taken Unknown] COURSE Hospital Course Hospital course: Ms. Morris is a 29 year old F with a past medical history of recurrent kidney stone, currently smoker, morbid obesity, and status post mechan ical aortic valve replacement on long-term anticoagulation with warfarin who was referred to the ER due to kidney stone, nausea and vomiting by urologist Dr. Combs. As per patient, she started to have constant left lower abdominal pain at about 9 PM yesterday afternoon associated with nausea and vomiting. The pain is sharp in nature and 6 out of 10 in severity, radiating to her back and perine al area. She has been having watery diarrhea 4 times a day for 4 days. When I saw in the ER, other than the symptoms mentioned above, she denied headache, dizziness, chest pain, shortness of breath, fever, chills, or dysuria. She underwent a surgery with Dr. Gunn 10/2019 for kidney stones. Patient has a history of bipolar disease and depression. She denies any suicidal ideation. pt underwent bilateral retrograde pyelograms, left ureteral stent placed on 01/27. Pt was discharged by Dr. Combs on 01/28/2020. I wrote the discharge summary to complete documentation. I have not seen the pt before pt left on that day. Discharge diagnosis: Nephrolithiasis Time Spent with Patient Time attestation: Total time spent providing and/or coordinating discharge services: EXAM Constitutional Vitals: Temp Pulse Resp BP Pulse Ox 97.8 F 92 H 20 116/65 95 01/28/20 20:09 01/28/20 20:09 01/28/20 20:09 01/28/20 20:09 01/28/20 20:09 Discharge Data Data Completed and Pending Labs on day of discharge: Preliminary micro results at discharge 01/27/20 19:56 Blood Culture - Preliminary Blood 01/27/20 19:48 Blood Culture - Preliminary Blood Discharge Plan Patient/Caregiver Discharge Instructions Activity: increase activity as tolerated Diet: Regular Diet Instructions: Urethral Stent Placement (DC), Lithotripsy (DC) Activity Restrictions/Additional Instructions: You have ureteropelvic junction obstruction on both sides. The left side is severe and should be corrected. The right side is more moderate but still may need to be corrected. The left ureteral stent is good form 3-6 months but then MUST be exchanged routinely (or removed) until you have surgery to correct the left side. If this is not done, the stent can calcify in place leading to severe infection, renal failure, kidney loss or even . Resume regular activity. Follow up 1-2 weeks to assess how you are doing and get you set up with a surgeon in [place] for repair. Regular diet -Drink plenty of water -see if your left pain subsides -pay attention to how often you have pain on the right, especially when you push fluids -if need be we can place a stent on the right as wellThis discharge packet is provided to you to help keep you informed about your care. We want to ensure you get everything you need when you go home. You will also be receiving a call from us in a few days to follow up with you and see how you are doing since your discharge. This gives us a chance to listen to any concerns you maybe experiencing since you were discharged or any additional needs you may have, as well as providing us feedback on your care experience. We strive to always provide excellent care and thank you for your feedback and for choosing [facility]. This discharge packet is provided to you to help keep you informed about your care. We want to ensure you get everything you need when you go home. You will also be receiving a call from us in a few days to follow up with you and see how you are doing since your discharge. This gives us a chance to listen to any concerns you maybe experiencing since you were discharged or any additional needs you may have, as well as providing us feedback on your care experience. We strive to always provide excellent care and thank you for your feedback and for choosing [facility]. Prescriptions: No Action warfarin 10 mg tablet 15 mg PO Q48H RF: 0 warfarin 10 mg Tablet 10 mg PO Q48H RF: 0 oxycodone 5 mg tablet 5 mg PO Q4HP PRN (Reason: pain) Qty: 16 RF: 0 Follow Up Plan Follow up with: Navi Combs MD [Physician] - (Call Dr Combs's office Saturday Morning and set up an appointment in 1-2 weeks.) Patient Disposition: Home, Self-Care Prognosis: Good Discharge Date/Time: 01/28/20 19:20 Discharge Orders: Discharge Order (Routine); Ordered 01/28/20 Ordered By: Navi Combs Discharge Comment: d/c home QUALITY VTE Deep Vein Thrombosis/Pulmonary Embolism Present on Admission: No
== END 2020-01-28 19:20 | disposition home or self-care (01) ==
LOC: MEDSUR 16:59 → ED 16:59 → MEDSUR 20:25
PROVIDERS: ADMIT Internal Medicine; ATTEND Internal Medicine

== ENCOUNTER 2020-09-07 15:14 | Observation (INO) ==
--- NOTE | 2020-09-07 16:04 | Emergency Department Note ---
Abdominal Pain HPI General Chief Complaint: Abdominal Pain Stated Complaint: Abdominal and back pain, blood Time Seen by Provider: 09/07/20 15:41 Source: patient Mode of arrival: ambulatory Limitations: no limitations History of Present Illness HPI Narrative: Narrative: 30-year-old female with history of chronic kidney stones, left-sided renal stents, chronic anticoagulation on Coumadin for an artificial aortic valve and a recent stroke on Mother's Day which she does not have any longstanding deficits from. She had a thrombectomy performed by Dr. Babin at [facility] and she states she is recovering well. She has been taking her Coumadin is regular. She says over the last few days she has been passing increasing blood clots in her urine. This is not atypical for her due to her chronic Coumadin. She st ates she did pass several large clots in her urine and denies vaginal bleeding or discharge. She states she has had a tubal ligation and is on control so it is very unlikely she is . She states she is had nausea without vomiting but denies fever, chills, body aches. She has had right-sided flank pain. She did feel a clunk in the toilet believes she has been passing stones but is concerned she may have an obstructing stone on the right due to the CVA tenderness and blood and clots in her urine. She has no other complaints to address at this time. Related Data Home Medications Medication Instructions Recorded Confirmed warfarin 10 mg tablet 15 mg PO Q48H 09/16/18 09/07/20 warfarin 10 mg PO Q48H 01/27/20 09/07/20 clonazepam 0.25 mg PO Q12HP PRN 09/07/20 09/07/20 olanzapine 10 mg PO QHS 09/07/20 09/07/20 Allergies Allergy/AdvReac Type Severity Reaction Status Date / Time tramadol AdvReac Intermediate Vomiting Verified 09/07/20 15:36 Review of Systems ROS ROS Narrative: Narrative: All systems ED: reviewed and negative except as stated. COUNTS INCLUDE 234 BEDS AT THE [facility] Narrative Patient History Narrative: Narrative: Medical/Surgical/Family History All Active Problems (Updated 09/07/20 @ 19:30 by Jj Pate PA-C) Constipation (Acute) Hydronephrosis due to obstruction of ureter (Acute) Rib pain on left side (Acute) Back pain (Acute) Nausea vomiting and diarrhea (Acute) Pain due to ureteral stent (Acute) UTI (urinary tract infection) (Acute) UPJ (ureteropelvic junction) obstruction (Acute) Renal stones (Acute) Pyelonephritis (Acute) Status post laser lithotripsy of ureteral calculus (Acute) History of recurrent UTIs (Acute) UTI (urinary tract infection) (Acute) History of kidney stones (Acute) Left leg pain (Acute) Tobacco abuse (Chronic) Pulmonary edema (Chronic) SOB (shortness of breath) (Chronic) Ovarian cyst (Chronic) Multiple contusions (Chronic) Hematuria (Chronic) Ureterolithiasis (Chronic) Nephrolithiasis (Chronic) Suicidal thoughts (Chronic) Heart murmur (Chronic) Pelvic pain (Chronic) Menometrorrhagia (Chronic) Dysmenorrhea (Chronic) Depression with anxiety (Chronic) ADHD (Chronic) Bipolar 1 disorder (Chronic) Supervision of other high risk pregnancies, second trimester (Chronic) Presence of prosthetic heart valve (Chronic) On anticoagulant therapy (Chronic) Tobacco use disorder complicating , childbirth, or puerperium, antepartum (Chronic) Obesity complicating in second trimester (Chronic) Abdominal pain (Chronic) Pain, dental (Chronic) UTI (urinary tract infection) (Chronic) Finger pain, left (Chronic) Contusion (Chronic) Medical History (Updated 09/07/20 @ 19:30 by Jj Pate PA-C) Abdominal pain ADHD Bicuspid aortic valve Bipolar 1 disorder Contusion Depression with anxiety Dysmenorrhea Finger pain, left Heart murmur Hematuria Menometrorrhagia Multiple contusions Nephrolithiasis Obesity complicating in second trimester On anticoagulant therapy Ovarian cyst Pain, dental Pelvic pain Presence of prosthetic heart valve Pulmonary edema SOB (shortness of breath) Suicidal thoughts Supervision of other high risk pregnancies, second trimester Tobacco abuse Tobacco use disorder complicating , childbirth, or puerperium, antepartum Ureterolithiasis UTI (urinary tract infection) Surgical History H/O lithotripsy History of aortic valve replacement (~04/2017) History of laparoscopy (~08/09/15) Negative for endometriosis Family History Mother Bile acid esophageal reflux Diabetes Hypertension Hypercholesteremia Stomach ulcer Ovarian cancer, Onset Age: 45 Grandmother , 70 CVA (cerebral vascular accident) Abnormal bruising Bleeding Clotting disorder Social History Smoking Status: Current every day smoker Alcohol Intake Frequency: does not drink Substance Use: does not use and marijuana Exam Narrative Narrative: Narrative: Gen: No acute distress Eyes: PERRL, no conjunctival injection , and symmetrical lids. Sclerae non icteric HENMT: Normocephalic Atraumatic head, external nose and ears. Moist MM. CVS: +S1/S2, audible click from artificial aortic valve heard on auscultation, radial pulses 2+ and equal bilat. No swelling RESP: Unlabored respiratory effort . Clear to auscultation bilaterally (CTAB). No noted wheezes rales or ronchi. GI: Mild right lower quadrant tenderness on palpation without rebound tenderness or guarding this radiates into the groin and is consistent with kidney stone rather than acute appendicitis Back: Right CVA tenderness MSK: Extremities w/o deformity or ttp. No cyanosis or clubbing. Skin: Warm, Dry . No rashes or lesions . Cap refill less than 2. Neuro: No focal neurological deficit Psych: Awake, Alert, & Oriented (AAO) x3. Appropriate mood and affect . General Limitations: no limitations Course Course Course Narrative: Patient has a history of chronic kidney stones, there is a stent on the left, she is chronically anticoagulated on Coumadin, she has been passing clots for the last several days and has been hearing clunking in the toilet believes she has been passing stones and has had dysuria. Should be evaluated CBC, CMP, urine with microscopy as well as culture and she will have a CT of the abdomen and pelvis without contrast when hCG is confirmed negative Vital Signs Vital signs: Vital Signs Temperature 99.0 F 09/07/20 15:30 Pulse Rate 80 09/07/20 15:30 Respiratory Rate 18 09/07/20 15:30 Blood Pressure 134/76 09/07/20 15:30 Pulse Oximetry (%) 98 09/07/20 15:30 Temperature 99.0 F 09/07/20 15:30 Pulse Rate 70 09/07/20 16:46 Respiratory Rate 18 09/07/20 15:30 Blood Pressure 105/56 09/07/20 16:46 Pulse Oximetry (%) 92 09/07/20 16:46 MDM MDM Narrative Medical decision making narrative: Narrative: CBC: Slightly elevated white count otherwise unremarkable CMP: Unremarkable INR: sub-therapeutic at 1.5 HCG: Negative Lipase: Normal UA: Equivocal, culture pending CT abdomen pelvis without contrast: IMPRESSION: 1. Double pigtail left ureteral stent with the proximal pigtail in the inferior left renal pelvis and the distal pigtail in the urinary bladder. Stent is likely nonfunctional - severe left hydronephrosis noted. 2. Multiple nonobstructing stones in the calyces of both kidneys - more numerous on the left. 3. Moderate uterine enlargement. Most common cause for this finding, in a morphologically normal uterus, would be adenomyosis. Interpreted and Authenticated by: Kedar Kyle 09/07/[address] Gamino on the phone regarding the likely nonfunctional stent severe left hydronephrosis, he is concerned about decompensation, sepsis and significant infection. He requested she be started on broad-spectrum antibiotic s and be admitted to Dr Escudero. We reviewed previous cultures which did not have susceptibility given the rare nature of them. Patient has normal hemoglobin hematocrit, CMP is unremarkable and her creatinine is in normal range. She will be given a gram of Rocephin. Patient states her primary care provider is Dr. Grullon. She is seen by [facility] and she had a stent placed that was metal on February 20 and that this should last approximately a year. Dr Escudero: Dr. Escudero did not want admit this patient as he believes this is more of a surgical problem and that her INR is subtherapeutic and should just be taken to surgery to have this addressed. He stated he was glad to consult on for Dr. Gamino if he wishes to admit the patient. He said he could come down and see the patient but does not feel like he should be admitting her. I spoke with Dr. Gamino regarding this patient we reviewed further notes and he said he would come down to evaluate her for admission. Lab Data Result diagrams: 09/07/20 16:12 09/07/20 16:12 Labs: Lab Results 09/07/20 Range/Units 16:12 WBC 11.2 H (4.5-11.0) K/mcL RBC 4.58 (4.00-5.20) M/mcL Hgb 11.7 L (12.0-15.0) g/dL Hct 36.8 (36.0-48.0) % MCV 80.3 (80.0-100.0) fL MCH 25.5 L (26.0-34.0) pg MCHC 31.8 (31.0-36.0) g/dL RDW 14.7 H (11.5-14.5) % Plt Count 288 (140-440) K/mcL MPV 11.3 H (7.4-10.4) fL Neut % (Auto) 78.4 H (38.0-78.0) % Lymph % (Auto) 13.5 L (15.0-49.0) % [place] % (Auto) 6.3 (1.0-12.0) % Eos % (Auto) 1.4 (0.0-7.0) % Baso % (Auto) 0.4 (0.0-2.0) % Lymph # (Auto) 1.51 (1.50-4.80) K/mcL [place] # (Auto) 0.71 (0.10-0.90) K/mcL Eos # (Auto) 0.16 (0.00-0.70) K/mcL Baso # (Auto) 0.04 (0.00-0.20) K/mcL Absolute Neutrophils 8.77 H (1.80-8.00) K/mcL Discharge Plan Patient/Caregiver Discharge Instructions Pt seen by NUCLE[employer] PLANT EQUIPMENT OPERATOR/PA only: No Clinical Impression: Hydronephrosis due to obstruction of ureter Patient Disposition: Xfer As Inpt ([facility]) Follow up with: Mihir Greenfield ARNP [Primary Care Provider] - Prescriptions: No Action warfarin 10 mg tablet 15 mg PO Q48H RF: 0 warfarin 10 mg Tablet 10 mg PO Q48H RF: 0 clonazepam 0.25 mg tablet,disintegrating 0.25 mg PO Q12HP PRN (Reason: Panic Attack(S)) RF: 0 olanzapine 10 mg tablet 10 mg PO QHS RF: 0
[2020-09-07] MEDS ORDERED: KETOROLAC 15 MG/ML VIAL IV ONE (16:29)
[2020-09-07] MEDS ORDERED: 0.9 % SODIUM CHLORIDE 1,000 ML IV ONE (16:35)
[2020-09-07 17:09] LABS: Basophils # (Auto) 0.04 K/mcL (0.00-0.20); Basophils % (Auto) 0.4 % (0.0-2.0); Eosinophils # (Auto) 0.16 K/mcL (0.00-0.70); Eosinophils % (Auto) 1.4 % (0.0-7.0); Hematocrit 36.8 % (36.0-48.0); Hemoglobin 11.7 g/dL (12.0-15.0); Lymphocytes # (Auto) 1.51 K/mcL (1.50-4.80); Lymphocytes % (Auto) 13.5 % (15.0-49.0); Mean Cell Volume 80.3 fL (80.0-100.0); Mean Corpuscular HGB Conc 31.8 g/dL (31.0-36.0); Mean Platelet Volume 11.3 fL (7.4-10.4); Monocytes # (Auto) 0.71 K/mcL (0.10-0.90); Monocytes % (Auto) 6.3 % (1.0-12.0); Neutrophils % (Auto) 78.4 % (38.0-78.0); Platelet Count 288 K/mcL (140-440); RBC 4.58 M/mcL (4.00-5.20); Red Cell Distribution Width 14.7 % (11.5-14.5); WBC 11.2 K/mcL (4.5-11.0)
[2020-09-07] MEDS ORDERED: morphine 2 MG/ML VIAL IV ONE ×2 (17:34→19:35)
[2020-09-07 17:37] LABS: ALT/SGPT 13 U/L (<40); AST/SGOT 18 U/L (<32); Albumin 4.1 gm/dL (3.2-5.2); Albumin/Globulin Ratio 1.6 (1.0-2.3); Alkaline Phosphatase 83 U/L (39-117); Bilirubin,Total 0.2 mg/dL (0.1-1.0); Blood Urea Nitrogen 11 mg/dL (6-20); Calcium 8.6 mg/dL (8.6-10.4); Carbon Dioxide 21 mmol/L (22-30); Chloride 107 mmol/L (96-108); Globulin 2.5 gm/dL (2.2-3.7); Glomerular Filtration Rate 118; Glucose 62 mg/dL (70-105)
[2020-09-07 17:43] LABS: HCG,Serum Negative
--- NOTE | 2020-09-07 18:27 | Cat Scan Report ---
CLINICAL INFORMATION: Abdominal pain. Evaluate for renal stone. COMPARISON: Abdomen and pelvic CT 02/29/2020 TECHNIQUE: 0.625 mm helical slices were obtained from the mid heart through the subtrochanteric regions. Following reconstruction, 2.5 mm sagittal, coronal and axial reformatted images were processed and reviewed at bone and soft tissue windows.The exam was performed using radiation dose optimization techniques including, but not limited to, automated exposure control, adjustment of the mA and/or kV according to patient size and use of iterative reconstruction technique. FINDINGS: Both noncontrasted kidneys are normal and symmetric in size, position, attenuation and configuration: The right kidney is 11.4 cm in length and the left kidney is 11.6 cm in length. A double pigtail ureteral stent is seen within the left ureter: The proximal end is in the inferior pelvis with the distal end within the urinary bladder. Severe left hydronephrosis suggest a nonfunctional stent. There are no stones in the left ureter or stent region. There are, however, multiple nonobstructing stones within the calyces of both kidneys: 1 mm inferior calyx left kidney, 7 mm mid calyx left kidney, 7 mm anterior mid calyx left kidney and a a cluster of six ranging up to 5 mm superior calyx left kidney. On the right side, there is 6 mm nonobstructing stone in a inferior calyx right kidney. No other renal abnormality. Urinary bladder is grossly normal. Lung bases show no abnormality no effusion. Visualized heart is normal. Abdominal images show the noncontrasted gallbladder and bile ducts, liver, both adrenal glands, spleen, pancreas and aorta to be normal in size configuration and attenuation without focal lesion. There is no free air, free fluid or adenopathy Pelvic images show a anteflexed uterus which is mildly enlarged spanning 10 x 4.5 cm. IUD is properly positioned within the endometrial cavity. 3.1 cm cyst in the right ovary. Left ovary is normal. Few sigmoid diverticuli appreciated, but no evidence of diverticulitis. The remaining large bowel, appendix, small bowel and stomach are normal. Bone windows show no osseous abnormality. IMPRESSION: 1. Double pigtail left ureteral stent with the proximal pigtail in the inferior left renal pelvis and the distal pigtail in the urinary bladder. Stent is likely nonfunctional - severe left hydronephrosis noted. 2. Multiple nonobstructing stones in the calyces of both kidneys - more numerous on the left. 3. Moderate uterine enlargement. Most common cause for this finding, in a morphologically normal uterus, would be adenomyosis. Interpreted and Authenticated by: Kedar Kyle 09/07/20
[2020-09-07 18:46] LABS: Appearance,Urine HAZY (Clear); Bilirubin,Urine Negative (Negative); Color,Urine YELLOW; Culture Indicated,Urine yes; Glucose,Urine (UA) Negative (Negative); Ketones,Urine Negative (Negative); Leukocyte Esterase,Urine 75 /ug (Negative); Nitrate,Urine Negative (Negative); Protein,Urine >=500 mg/dL (Negative); Specific Gravity,Urine 1.017 (1.000-1.035); Urine Blood >=1.0 mg/dL (Negative); Urine RBC > 182 /hpf (0-1); Urine Squamous Epithelial Cell 3 /hpf (0-4); Urine WBC 42 /hpf (0-4); Urobilinogen,Urine Negative
[2020-09-07] MEDS ORDERED: cefTRIAXone 1 GM VIAL IV ONE (18:52)
[2020-09-07 18:58] LABS: POC INR 1.5 (0.8-1.2); POC Pro Time 17.9 sec (11.9-14.5)
[2020-09-07] MEDS ORDERED: ONDANSETRON 4 MG/2 ML VIAL IV ONE (19:35)
--- NOTE | 2020-09-07 19:41 | Internal Medicine Consult Note ---
HPI Data of Consult Consult date: 09/07/20 Primary Care Provider: FRAN Pierce Consult Narrative cc:: CC: Presents today with left-sided flank pain sharp rating to the back into the groin. She had a history of kidney stones. She believes she might of passed one earlier today. She does have a history of hematuria because of her stones and she is on anticoagulation for aortic valve with a goal INR of 2.5-3.5. [id number] INR was subtherapeutic. CT abdomen shows severe left hydronephrosis and obstruction likely from stent. She has some nausea but no other complaints other than the pain. 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 Babin. Review of Systems: Pertinent positives as above. Denies headache/fever/chills/vomiting/chest or abdominal pain/cough/dyspnea/diarrhea. Remaining 10 point review of system reviewed negative. PFSH PFSH All Active Problems (Updated 09/07/20 @ 19:30 by Jj Pate PA-C) Constipation (Acute) Hydronephrosis due to obstruction of ureter (Acute) Rib pain on left side (Acute) Back pain (Acute) Nausea vomiting and diarrhea (Acute) Pain due to ureteral stent (Acute) UTI (urinary tract infection) (Acute) UPJ (ureteropelvic junction) obstruction (Acute) Renal stones (Acute) Pyelonephritis (Acute) Status post laser lithotripsy of ureteral calculus (Acute) History of recurrent UTIs (Acute) UTI (urinary tract infection) (Acute) History of kidney stones (Acute) Left leg pain (Acute) Tobacco abuse (Chronic) Pulmonary edema (Chronic) SOB (shortness of breath) (Chronic) Ovarian cyst (Chronic) Multiple contusions (Chronic) Hematuria (Chronic) Ureterolithiasis (Chronic) Nephrolithiasis (Chronic) Suicidal thoughts (Chronic) Heart murmur (Chronic) Pelvic pain (Chronic) Menometrorrhagia (Chronic) Dysmenorrhea (Chronic) Depression with anxiety (Chronic) ADHD (Chronic) Bipolar 1 disorder (Chronic) Supervision of other high risk pregnancies, second trimester (Chronic) Presence of prosthetic heart valve (Chronic) On anticoagulant therapy (Chronic) Tobacco use disorder complicating , childbirth, or puerperium, antep artum (Chronic) Obesity complicating in second trimester (Chronic) Abdominal pain (Chronic) Pain, dental (Chronic) UTI (urinary tract infection) (Chronic) Finger pain, left (Chronic) Contusion (Chronic) Medical History (Updated 09/07/20 @ 19:30 by Jj Pate PA-C) Abdominal pain ADHD Bicuspid aortic valve Bipolar 1 disorder Contusion Depression with anxiety Dysmenorrhea Finger pain, left Heart murmur Hematuria Menometrorrhagia Multiple contusions Nephrolithiasis Obesity complicating in second trimester On anticoagulant therapy Ovarian cyst Pain, dental Pelvic pain Presence of prosthetic heart valve Pulmonary edema SOB (shortness of breath) Suicidal thoughts Supervision of other high risk pregnancies, second trimester Tobacco abuse Tobacco use disorder complicating , childbirth, or puerperium, antepartum Ureterolithiasis UTI (urinary tract infection) Surgical History H/O lithotripsy History of aortic valve replacement (~04/2017) History of laparoscopy (~08/09/15) Negative for endometriosis Family History Mother Bile acid esophageal reflux Diabetes Hypertension Hypercholesteremia Stomach ulcer Ovarian cancer, Onset Age: 45 Grandmother , 70 CVA (cerebral vascular accident) Abnormal bruising Bleeding Clotting disorder Social History marital status: single 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 MEDS/ALLERGIES Home Medications and Allergies Home Medications Medication Instructions Recorded Confirmed Type warfarin 10 mg tablet 15 mg PO Q48H 09/16/18 09/07/20 History warfarin 10 mg PO Q48H 01/27/20 09/07/20 History clonazepam 0.25 mg PO Q12HP PRN 09/07/20 09/07/20 History olanzapine 10 mg PO QHS 09/07/20 09/07/20 History Allergies Allergy/AdvReac Type Severity Reaction Status Date / Time tramadol AdvReac Intermediate Vomiting Verified 09/07/20 15:36 EXAM Constitutional Vitals: Temp Pulse Resp BP Pulse Ox 99.0 F 67 18 115/102 97 09/07/20 15:30 09/07/20 19:16 09/07/20 15:30 09/07/20 19:16 09/07/20 19:16 Exam: General: Alert, Awake, No acute Distress, obese Eyes/N/T: EOMI, PERRL, MMM Head/Neck: neck supple, normocephalic atraumatic CV: RRR, No murmurs, normal s1/s2 Pulm: Clear b/l, no wheezing/rhonchi/rales Abd: soft, nontender, +BS x4 Ext: no clubbing/cyanosis/edema Neuro: Alert, no focal deficits, moves all extremities, CN 2-12 grossly intact, symmetrical strength b/l upper/lower, sensations intact b/l upper/lower Skin: warm/dry DATA Data Completed and Pending Labs: Labs from last 24 hours 09/07/20 09/07/20 09/07/20 18:55 18:16 16:12 WBC RBC Hgb Hct MCV MCH MCHC RDW Plt Count MPV Neut % (Auto) Lymph % (Auto) [place] % (Auto) Eos % (Auto) Baso % (Auto) Lymph # (Auto) [place] # (Auto) Eos # (Auto) Baso # (Auto) Absolute Neutrophils POC PT 17.9 H PT Pending POC INR 1.5 H INR Pending Sodium Potassium Chloride Carbon Dioxide Anion Gap BUN Creatinine GFR Calculation Glucose Calcium Total Bilirubin AST ALT Alkaline Phosphatase Total Protein Albumin Globulin Albumin/Globulin Ratio Lipase HCG, Qual Urine Color Yellow Urine Appearance Hazy A Urine pH 7.0 Ur Specific Maurice 1.017 Urine Protein >=500 A Urine Glucose (UA) Negative Urine Ketones Negative Urine Occult Blood >=1.0 A Urine Nitrate Negative Urine Bilirubin Negative Urine Urobilinogen Negative Ur Leukocyte Esterase 75 A Urine RBC > 182 H Urine WBC 42 H Ur Squamous Epith Cells 3 Urine Bacteria None Ur Culture Indicated? yes 09/07/20 09/07/20 16:12 16:12 WBC 11.2 H RBC 4.58 Hgb 11.7 L Hct 36.8 MCV 80.3 MCH 25.5 L MCHC 31.8 RDW 14.7 H Plt Count 288 MPV 11.3 H Neut % (Auto) 78.4 H Lymph % (Auto) 13.5 L [place] % (Auto) 6.3 Eos % (Auto) 1.4 Baso % (Auto) 0.4 Lymph # (Auto) 1.51 [place] # (Auto) 0.71 Eos # (Auto) 0.16 Baso # (Auto) 0.04 Absolute Neutrophils 8.77 H POC PT PT POC INR INR Sodium 142 Potassium 3.4 Chloride 107 Carbon Dioxide 21 L Anion Gap 14.0 BUN 11 Creatinine 0.7 GFR Calculation 118 Glucose 62 L Calcium 8.6 Total Bilirubin 0.2 AST 18 ALT 13 Alkaline Phosphatase 83 Total Protein 6.6 Albumin 4.1 Globulin 2.5 Albumin/Globulin Ratio 1.6 Lipase 12 HCG, Qual Negative Urine Color Urine Appearance Urine pH Ur Specific Maurice Urine Protein Urine Glucose (UA) Urine Ketones Urine Occult Blood Urine Nitrate Urine Bilirubin Urine Urobilinogen Ur Leukocyte Esterase Urine RBC Urine WBC Ur Squamous Epith Cells Urine Bacteria Ur Culture Indicated? A/P Narrative A/P Narrative: A: *Left hydronephrosis w/hematuria & clots from obstructing stent: -has chronic hematuria from nephrolithiasis/anticoagulation *mild Anemia, blood loss: 2/2 above *h/o nephrolithiasis: *AV Replacement: warfarin with goal INR 2.5-3.5 *Subtherapeutic INR: *h/o MCA CVA in July s/p Thrombectomy by Dr. Babin, subtherapeutic INR at that time *Anxiety: on clonazepam and olanzepine *Obesity: *?UTI P: -Dr. Gamino for -Lovenox tonight and hold in AM for likely procedure -f/u H&H in morning -start warfarin-lovenox bridge post-op given high thromboembolism risk -Jf pending UC -ppx: lovenox-warfarin bridge Time Spent With Patient Time: Total time spent is greater than 50% in coordination of care (as documented) at patient's floor/unit and/or counseling patient:
[2020-09-07 19:57] LABS: INR 1.5 (0.9-1.1); Prothrombin Time 18.3 sec (11.9-14.5)
--- NOTE | 2020-09-07 20:29 | General Surgery Consult Note ---
HPI Data of Consult Consult date: 09/07/20 Primary Care Provider: FRAN Pierce Consult Narrative Chief complaint: Gross hematuria with flank pain and likely UTI Reason for consult: Patient with long-term indwelling stent and UPJ obstruction left History of present illness: Patient is a 30-year-old white female morbidly obese with multiple medical problems resulting in chronic anticoagulation and having had recent stroke with subtherapeutic. Patient is now presented again to the emergency room with gross hematuria and some clots with some left flank pain. She has had apparently 2 recent UTIs treated through [facility] with what sounds like Macrobid and questionably E. coli identified. Patient has had a long-term indwelling metal stent placed in February here at [facility] and has had several episodes of gross hematuria since. Present CT imaging shows some hydronephrosis but appears to be stable on markedly less than 3 stent placement. She is now had admission for management of UTI and for ureteral stent exchange to see if symptoms can be improved and recurrent urinary tract infections lessened secondary to presumed stent colonization cc:: CC: PFSH PFSH All Active Problems (Updated 09/07/20 @ 19:30 by Jj Pate PA-C) Constipation (Acute) Hydronephrosis due to obstruction of ureter (Acute) Rib pain on left side (Acute) Back pain (Acute) Nausea vomiting and diarrhea (Acute) Pain due to ureteral stent (Acute) UTI (urinary tract infection) (Acute) UPJ (ureteropelvic junction) obstruction (Acute) Renal stones (Acute) Pyelonephritis (Acute) Status post laser lithotripsy of ureteral calculus (Acute) History of recurrent UTIs (Acute) UTI (urinary tract infection) (Acute) History of kidney stones (Acute) Left leg pain (Acute) Tobacco abuse (Chronic) Pulmonary edema (Chronic) SOB (shortness of breath) (Chronic) Ovarian cyst (Chronic) Multiple contusions (Chronic) Hematuria (Chronic) Ureterolithiasis (Chronic) Nephrolithiasis (Chronic) Suicidal thoughts (Chronic) Heart murmur (Chronic) Pelvic pain (Chronic) Menometrorrhagia (Chronic) Dysmenorrhea (Chronic) Depression with anxiety (Chronic) ADHD (Chronic) Bipolar 1 disorder (Chronic) Supervision of other high risk pregnancies, second trimester (Chronic) Presence of prosthetic heart valve (Chronic) On anticoagulant therapy (Chronic) Tobacco use disorder complicating , childbirth, or puerperium, antepartum (Chronic) Obesity complicating in second trimester (Chronic) Abdominal pain (Chronic) Pain, dental (Chronic) UTI (urinary tract infection) (Chronic) Finger pain, left (Chronic) Contusion (Chronic) Medical History (Updated 09/07/20 @ 19:30 by Jj Pate PA-C) Abdominal pain ADHD Bicuspid aortic valve Bipolar 1 disorder Contusion Depression with anxiety Dysmenorrhea Finger pain, left Heart murmur Hematuria Menometrorrhagia Multiple contusions Nephrolithiasis Obesity complicating in second trimester On anticoagulant therapy Ovarian cyst Pain, dental Pelvic pain Presence of prosthetic heart valve Pulmonary edema SOB (shortness of breath) Suicidal thoughts Supervision of other high risk pregnancies, second trimester Tobacco abuse Tobacco use disorder complicating , childbirth, or puerperium, antepartum Ureterolithiasis UTI (urinary tract infection) Surgical History H/O lithotripsy History of aortic valve replacement (~04/2017) History of laparoscopy (~08/09/15) Negative for endometriosis Family History Mother Bile acid esophageal reflux Diabetes Hypertension Hypercholesteremia Stomach ulcer Ovarian cancer, Onset Age: 45 Grandmother , 70 CVA (cerebral vascular accident) Abnormal bruising Bleeding Clotting disorder Social History marital status: single 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 MEDS/ALLERGIES Home Medications and Allergies Home Medications Medication Instructions Recorded Confirmed Type warfarin 10 mg tablet 15 mg PO Q48H 09/16/18 09/07/20 History warfarin 10 mg PO Q48H 01/27/20 09/07/20 History clonazepam 0.25 mg PO Q12HP PRN 09/07/20 09/07/20 History olanzapine 10 mg PO QHS 09/07/20 09/07/20 History Allergies Allergy/AdvReac Type Severity Reaction Status Date / Time tramadol AdvReac Intermediate Vomiting Verified 09/07/20 15:36 Physical Examination Vital Signs Vital signs: Temp Pulse Resp BP Pulse Ox 99.0 F 62 18 122/73 94 09/07/20 15:30 09/07/20 19:31 09/07/20 15:30 09/07/20 19:49 09/07/20 19:49 Additional Findings Additional exam: Patient is afebrile nontoxic standing and comfortable on the emergency room T3 suite HEENT within normal limits chest normal diaphragmatic excursion Cardiac rhythm regular Back mild CVA tenderness Abdomen morbidly obese nontender not done Results Labs Result diagrams: 09/07/20 16:12 09/07/20 16:12 Labs: Abnormal lab results 09/07/20 09/07/20 09/07/20 Range/Units 16:12 16:12 16:12 WBC 11.2 H (4.5-11.0) K/mcL Hgb 11.7 L (12.0-15.0) g/dL MCH 25.5 L (26.0-34.0) pg RDW 14.7 H (11.5-14.5) % MPV 11.3 H (7.4-10.4) fL Neut % (Auto) 78.4 H (38.0-78.0) % Lymph % (Auto) 13.5 L (15.0-49.0) % Absolute Neutrophils 8.77 H (1.80-8.00) K/mcL POC PT (11.9-14.5) sec PT 18.3 H (11.9-14.5) sec POC INR (0.8-1.2) INR 1.5 H (0.9-1.1) Carbon Dioxide 21 L (22-30) mmol/L Glucose 62 L (70-105) mg/dL Urine Appearance (Clear) Urine Protein (Negative) mg/dL Urine Occult Blood (Negative) mg/dL Ur Leukocyte Esterase (Negative) /ug Urine RBC (0-1) /hpf Urine WBC (0-4) /hpf 09/07/20 09/07/20 Range/Units 18:16 18:55 WBC (4.5-11.0) K/mcL Hgb (12.0-15.0) g/dL MCH (26.0-34.0) pg RDW (11.5-14.5) % MPV (7.4-10.4) fL Neut % (Auto) (38.0-78.0) % Lymph % (Auto) (15.0-49.0) % Absolute Neutrophils (1.80-8.00) K/mcL POC PT 17.9 H (11.9-14.5) sec PT (11.9-14.5) sec POC INR 1.5 H (0.8-1.2) INR (0.9-1.1) Carbon Dioxide (22-30) mmol/L Glucose (70-105) mg/dL Urine Appearance Hazy A (Clear) Urine Protein >=500 A (Negative) mg/dL Urine Occult Blood >=1.0 A (Negative) mg/dL Ur Leukocyte Esterase 75 A (Negative) /ug Urine RBC > 182 H (0-1) /hpf Urine WBC 42 H (0-4) /hpf Diabetes panel 09/07/20 Range/Units 16:12 Sodium 142 (133-145) mmol/L Potassium 3.4 (3.3-5.1) mmol/L Chloride 107 (96-108) mmol/L Carbon Dioxide 21 L (22-30) mmol/L BUN 11 (6-20) mg/dL Creatinine 0.7 (0.6-1.1) mg/dL Glucose 62 L (70-105) mg/dL Calcium 8.6 (8.6-10.4) mg/dL AST 18 (<32) U/L ALT 13 (<40) U/L Alkaline Phosphatase 83 (39-117) U/L Total Protein 6.6 (5.9-8.4) gm/dL Albumin 4.1 (3.2-5.2) gm/dL Calcium panel 09/07/20 Range/Units 16:12 Calcium 8.6 (8.6-10.4) mg/dL Albumin 4.1 (3.2-5.2) gm/dL Pituitary panel 09/07/20 Range/Units 16:12 Sodium 142 (133-145) mmol/L Potassium 3.4 (3.3-5.1) mmol/L Chloride 107 (96-108) mmol/L Carbon Dioxide 21 L (22-30) mmol/L BUN 11 (6-20) mg/dL Creatinine 0.7 (0.6-1.1) mg/dL Glucose 62 L (70-105) mg/dL Calcium 8.6 (8.6-10.4) mg/dL Adrenal panel 09/07/20 Range/Units 16:12 Sodium 142 (133-145) mmol/L Potassium 3.4 (3.3-5.1) mmol/L Chloride 107 (96-108) mmol/L Carbon Dioxide 21 L (22-30) mmol/L BUN 11 (6-20) mg/dL Creatinine 0.7 (0.6-1.1) mg/dL Glucose 62 L (70-105) mg/dL Calcium 8.6 (8.6-10.4) mg/dL Total Bilirubin 0.2 (0.1-1.0) mg/dL AST 18 (<32) U/L ALT 13 (<40) U/L Alkaline Phosphatase 83 (39-117) U/L Total Protein 6.6 (5.9-8.4) gm/dL Albumin 4.1 (3.2-5.2) gm/dL All other labs normal. A/P Narrative A/P Narrative: Assessment: Appreciate hospitalist help with UTI coagulation management Less likely stent obstruction versus infection and stone progression based on sequential CT imaging especially upper or lower pole stones on the left side which could be contributing significantly to her voiding and high risk for becoming seeded with subsequent pyelonephritis. Patient has been previously scheduled for UPJ repair robotically in [place] but had to abandon secondary to her CVA on subtherapeutic anticoagulation dosing. Agree with initial Rocephin management antibiotic and await urine culture and sensitivity results Continue hydration and void proceed to cystoscopy and stent exchange tomorrow with a Lovenox bridge. Patient understands procedure risks and benefits and agrees to plan as outlined Plan: N.p.o. tonight and Lovenox bridge with scheduling for cystoscopy and ureteral stent exchange left side tomorrow Consent to be signed and will reassess in the morning to assure labs are stable Time Spent With Patient Time: Total time spent is greater than 50% in coordination of care (as do cumented) at patient's floor/unit and/or counseling patient:
[2020-09-07] MEDS ORDERED: ENOXAPARIN 100 MG/ML SYRINGE SQ SCH (21:11)
[2020-09-07] MEDS ORDERED: cefTRIAXone 1 GM in DEXTROSE 5% IN WATER 50 ML IV SCH (21:11)
[2020-09-07] MEDS ORDERED: ACETAMINOPHEN 325 MG TABLET PO PRN (21:11)
[2020-09-07] MEDS ORDERED: POTASSIUM CHLORIDE 20 MEQ TABLET PO PRN ×2 (21:11)
[2020-09-07] MEDS ORDERED: POTASSIUM CHLORIDE 40 MEQ in DEXTROSE 5% IN WATER 500 ML IV PRN (21:11)
[2020-09-07] MEDS ORDERED: MAGNESIUM SULFATE 2 GM/50 ML BAG IV PRN (21:11)
[2020-09-07] MEDS ORDERED: ONDANSETRON 4 MG/2 ML VIAL IV PRN (21:11)
[2020-09-07] MEDS ORDERED: POLYETHYLENE GLYCOL 3350 17 GM PACKET PO PRN (21:11)
[2020-09-07] MEDS ORDERED: METOCLOPRAMIDE 10 MG/2 ML VIAL IV PRN (21:11)
[2020-09-07] MEDS ORDERED: IPRATROPIUM/ALBUTEROL 3 ML AMPUL.NEB NEB PRN (21:11)
[2020-09-07] MEDS ORDERED: SENNOSIDES 1 TABLET PO PRN (21:11)
[2020-09-07] MEDS ORDERED: clonazePAM 0.5 MG TABLET PO PRN (21:18)
[2020-09-07] MEDS: HYDROcodone/APAP 5/325MG TABLET PO PRN (21:44)
[2020-09-07] MEDS: 0.9 % SODIUM CHLORIDE 10 ML SYRINGE IV SCH (21:44)
[2020-09-07] MEDS: DOCUSATE SODIUM 100 MG CAPSULE PO SCH (21:44)
[2020-09-07] MEDS ORDERED: ENOXAPARIN 100 MG/ML SYRINGE ONE (21:49)
[2020-09-07] MEDS: 0.9 % SODIUM CHLORIDE 1,000 ML IV SCH (22:31)
[2020-09-07] MEDS: morphine 4 MG/ML VIAL IV PRN (23:06)
[2020-09-08] MEDS: morphine 4 MG/ML VIAL IV PRN ×5 (00:05→15:01)
[2020-09-08] MEDS: 0.9 % SODIUM CHLORIDE 10 ML SYRINGE IV SCH ×2 (05:10→14:00)
[2020-09-08 06:50] LABS: Basophils # (Auto) 0.04 K/mcL (0.00-0.20); Basophils % (Auto) 0.5 % (0.0-2.0); Eosinophils # (Auto) 0.18 K/mcL (0.00-0.70); Eosinophils % (Auto) 2.1 % (0.0-7.0); Hematocrit 35.5 % (36.0-48.0); Hemoglobin 11.2 g/dL (12.0-15.0); Lymphocytes # (Auto) 1.84 K/mcL (1.50-4.80); Lymphocytes % (Auto) 21.9 % (15.0-49.0); Mean Cell Volume 81.8 fL (80.0-100.0); Mean Corpuscular HGB Conc 31.5 g/dL (31.0-36.0); Mean Platelet Volume 11.1 fL (7.4-10.4); Monocytes % (Auto) 5.9 % (1.0-12.0); Neutrophils % (Auto) 69.6 % (38.0-78.0); Platelet Count 252 K/mcL (140-440); RBC 4.34 M/mcL (4.00-5.20); Red Cell Distribution Width 14.6 % (11.5-14.5); WBC 8.4 K/mcL (4.5-11.0)
--- NOTE | 2020-09-08 07:01 | Internal Med Progress Note ---
SUBJECTIVE Subjective Patient information: Note initiated : 09/08/20 at 6:58 am Service Date, if different from initiated Date: [] Patient: Zeinab Morris 30 y/o F admitted on 09/07/20 for Abdominal and back pain, blood. Chief Complaint: [] Interval history: Presents today with left-sided flank pain sharp rating to the back into the groin. She had a history of kidney stones. She believes she might of passed one earlier today. She does have a history of hematuria because of her stones and she is on anticoagulation for aortic valve with a goal INR of 2.5-3.5. [id number] INR was subtherapeutic. CT abdomen shows severe left hydronephrosis and obstruction likely from stent. She has some nausea but no other complaints other than the pain. 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 Babin. 09/08 Stable overnight. Flank pain. Nausea but no new complaints. Review of Systems: denies headache/fever/chills/vomiting/chest or abdominal pain/cough/dyspnea/diarrhea. Otherwise see above. Constitutional Vitals: Vital Signs Temp Pulse Resp BP Pulse Ox 97.8 F 58 L 18 122/69 97 09/08/20 03:13 09/08/20 03:13 09/08/20 03:13 09/08/20 03:13 09/08/20 03:13 Period Temp Pulse Resp BP Sys/Amaya Pulse Ox Last 24 Hr 97.8 F-99.0 F 56-81 18-20 70-134/41-102 92-98 Intake and Output 09/07/20 09/08/20 09/08/20 21:59 05:59 13:59 Intake Total 1000 710 Output Total 225 250 Balance 1000 485 -250 Weight 117.843 kg Intake & Output: Intake & Output 09/07/20 09/08/20 09/08/20 21:59 05:59 13:59 Intake Total 1000 710 Output Total 225 250 Balance 1000 485 -250 Weight 117.843 kg Intake: IV 1000 Sodium Chloride 0.9% 1,000 ml @ 1000 Wide Open IV BOLUS ONE Rx#: [id number] Oral 710 Output: Void Amount 225 250 Other: Urine Appearance Hematuria Hematuria Urine Color Bright Red Bright Red Dark Red Exam: General: Alert, Awake, No acute Distress, obese Eyes/N/T: EOMI, Head/Neck: neck supple, CV: RRR, No murmurs, Pulm: Clear b/l, no wheezing/rhonchi/rales Abd: soft, nontender, +BS x4 Ext: no clubbing/cyanosis/edema Neuro: Alert, no focal deficits, moves all extremities, Skin: warm/dry OBJ DATA Labs CBC & Chem 7: 09/08/20 06:10 09/08/20 06:10 Labs: Abnormal Lab Results 09/08/20 09/07/20 09/07/20 06:10 18:55 18:16 WBC Hgb 11.2 L Hct 35.5 L MCH 25.8 L RDW 14.6 H MPV 11.1 H Neut % (Auto) Lymph % (Auto) Absolute Neutrophils POC PT 17.9 H PT POC INR 1.5 H INR Carbon Dioxide Glucose Urine Appearance Hazy A Urine Protein >=500 A Urine Occult Blood >=1.0 A Ur Leukocyte Esterase 75 A Urine RBC > 182 H Urine WBC 42 H 09/07/20 09/07/20 09/07/20 16:12 16:12 16:12 WBC 11.2 H Hgb 11.7 L Hct MCH 25.5 L RDW 14.7 H MPV 11.3 H Neut % (Auto) 78.4 H Lymph % (Auto) 13.5 L Absolute Neutrophils 8.77 H POC PT PT 18.3 H POC INR INR 1.5 H Carbon Dioxide 21 L Glucose 62 L Urine Appearance Urine Protein Urine Occult Blood Ur Leukocyte Esterase Urine RBC Urine WBC Meds: Medications Acetaminophen (Acetaminophen 325 Mg Tablet) 650 mg PO Q6HP PRN PRN Reason: PAIN/FEVER > 101 Hydrocodone Bitart/Acetaminophen (Hydrocodone/Apap 5/325mg Tablet) 1 tab PO Q4HP PRN PRN Reason: PAIN LEVEL 3-6 Last Admin: 09/07/20 21:44 Dose: 1 tab Documented by: Albuterol/Ipratropium (Ipratropium/Albuterol 3 Ml Ampul.Neb) 3 ml NEB Q4HP PRN PRN Reason: Shortness Of Breath Albuterol/Ipratropium (Ipratropium/Albuterol 3 Ml Ampul.Neb) 3 ml NEB ONCE PRN PRN Reason: Shortness Of Breath Stop: 09/08/20 17:00 Ceftriaxone Sodium (Ceftriaxone 1 Gm Vial) 1 gm IV Q24H [facility] Clonazepam (Clonazepam 0.5 Mg Tablet) 0.25 mg PO Q12HP PRN PRN Reason: Panic Attack(S) Docusate Sodium (Docusate Sodium 100 Mg Capsule) 100 mg PO BID [facility] Last Admin: 09/07/20 21:44 Dose: 100 mg Documented by: Potassium Chloride 40 meq/ (Dextrose) 520 mls @ 130 mls/hr IV UD PRN PRN Reason: Potassium < 3 Magnesium Sulfate (Magnesium Sulfate) 2 gm in 50 mls @ 50 mls/hr IV UD PRN PRN Reason: Magnesium </= 1.6 Sodium Chloride (Sodium Chloride 0.9%) 1,000 mls @ 100 mls/hr IV .Q10H [facility] Stop: 09/08/20 17:10 Last Admin: 09/07/20 22:31 Dose: 100 mls/hr Documented by: Metoclopramide HCl (Metoclopramide 10 Mg/2 Ml Vial) 10 mg IV Q6HP PRN PRN Reason: Nausea And Vomiting Morphine Sulfate (Morphine 4 Mg/Ml Vial) 0 mg IV Q3HP PRN PRN Reason: Pain Last Admin: 09/08/20 06:19 Dose: 2 mg Documented by: Olanzapine (Olanzapine 5 Mg Tablet) 10 mg PO QHS [facility] Ondansetron HCl (Ondansetron 4 Mg/2 Ml Vial) 4 mg IV Q4HP PRN PRN Reason: Nausea And Vomiting Last Admin: 09/08/20 00:01 Dose: 4 mg Documented by: Polyethylene Glycol (Polyethylene Glycol 3350 17 Gm Packet) 17 gm PO DAILYP PRN PRN Reason: Constipation Potassium Chloride (Potassium Chloride 20 Meq Tablet) 40 meq PO UD PRN PRN Reason: Potssium is 3-3.5 Potassium Chloride (Potassium Chloride 20 Meq Tablet) 40 meq PO UD PRN PRN Reason: Potassium < 3 Scopolamine (Scopolamine 1 Patch Patch) 1 patch TOPICAL PREOP PRN PRN Reason: Nausea And Vomiting Stop: 09/08/20 17:00 Senna (Sennosides 1 Tablet) 2 tab PO DAILYP PRN PRN Reason: Constipation Sodium Chloride (0.9 % Sodium Chloride 10 Ml Syringe) 10 ml IV Q8 [facility] Last Admin: 09/08/20 05:10 Dose: Not Given Documented by: A/P Narrative A/P Narrative: A: *Left hydronephrosis w/hematuria & clots from obstruction ston vs stent: -has chronic hematuria from nephrolithiasis/anticoagulation *mild Anemia, blood loss: 2/2 above -H&H stable *h/o nephrolithiasis: *AV Replacement: warfarin with goal INR 2.5-3.5 *Subtherapeutic INR: *h/o MCA CVA in July s/p Thrombectomy by Dr. Babin, subtherapeutic INR at that time *Anxiety: on clonazepam and olanzepine *Obesity: *?UTI P: -Dr. Gamino for -Lovenox held this AM for procedure -start warfarin-lovenox bridge post-op given high thromboembolism risk -Rocephin pending -ppx: lovenox-warfarin bridge Time Spent With Patient Time: Total time spent is greater than 50% in coordination of care (as documented) at patient's floor/unit and/or counseling patient: QUALITY Stroke Symptom Onset Unknown: No VTE Deep Vein Thrombosis/Pulmonary Embolism Present on Admission: No
[2020-09-08 07:02] LABS: ALT/SGPT 12 U/L (<40); AST/SGOT 15 U/L (<32); Albumin 3.8 gm/dL (3.2-5.2); Albumin/Globulin Ratio 1.7 (1.0-2.3); Alkaline Phosphatase 73 U/L (39-117); Bilirubin,Direct < 0.2 mg/dL (0-0.3); Bilirubin,Total 0.3 mg/dL (0.1-1.0); Blood Urea Nitrogen 12 mg/dL (6-20); Calcium 8.1 mg/dL (8.6-10.4); Carbon Dioxide 22 mmol/L (22-30); Chloride 106 mmol/L (96-108); Globulin 2.2 gm/dL (2.2-3.7); Glomerular Filtration Rate 100; Glucose 85 mg/dL (70-105); Lactate Dehydrogenase 262 U/L (135-225); Phosphorous 3.1 mg/dL (2.5-4.5); Triglycerides 129 mg/dL (<150)
[2020-09-08] MEDS: HYDROcodone/APAP 5/325MG TABLET PO PRN ×2 (08:16→16:15)
[2020-09-08] MEDS: 0.9 % SODIUM CHLORIDE 1,000 ML IV SCH ×2 (08:48→09:15)
[2020-09-08] MEDS ORDERED: cefTRIAXone 1 GM VIAL IV SCH (09:00)
[2020-09-08] MEDS: DOCUSATE SODIUM 100 MG CAPSULE PO SCH (10:11)
[2020-09-08] MEDS ORDERED: SCOPOLAMINE 1 PATCH PATCH TOPICAL PRN (11:00)
[2020-09-08] MEDS ORDERED: IPRATROPIUM/ALBUTEROL 3 ML AMPUL.NEB NEB PRN (11:00)
[2020-09-08 11:39] LABS: INR 1.4 (0.9-1.1)
[2020-09-08] MEDS ORDERED: LIDOCAINE HCL/PF 100 MG/5 ML SYRINGE IV ONE (13:46)
[2020-09-08] MEDS ORDERED: KETAMINE 50 MG/ML ML ONE (13:46)
[2020-09-08] MEDS ORDERED: DEXAMETHASONE 10 MG/ML VIAL ONE (13:46)
[2020-09-08] MEDS ORDERED: PROPOFOL 200 MG/20 ML VIAL IV ONE (13:46)
[2020-09-08] MEDS ORDERED: ONDANSETRON 4 MG/2 ML VIAL ONE (13:46)
[2020-09-08] MEDS ORDERED: GLYCOPYRROLATE 0.2 MG/ML VIAL IV ONE (13:46)
[2020-09-08] MEDS ORDERED: MIDAZOLAM 2 MG/2 ML VIAL ONE (13:46)
--- NOTE | 2020-09-08 14:13 | Operative Note ---
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 Jairo Gamino Anesthesia: Dr. Martin--type General Drain: 7 x 24 cm double-J stent with no suture per urethra Complications none Description: After adequate induction of general anesthesia patient had prepping and draping in the dorsolithotomy position. Patient had timeout performed and fluoroscopy demonstrated stent in normal position. Cystoscopy was next carried out with the rigid cystoscope and video assistance. Patient had bladder demonstrating some mild cystitis and markedly encrusted distal end of the metal previously placed stent consistent with her clinical findings. Patient had stent grasped with grasping forceps knocking off some of the encrustation and stent was removed under fluoroscopic control with all portions being intact. No obvious residual stone was noted but stones persisting in the renal upper pole and lower pole calyceal system likely. With patient's present infection and Lovenox bridging at present we will hold on holmium laser lithotripsy. Patient had a 7 M[place] by 24 cm double-J stent placed over a guidewire which had been placed alongside the metal stent and position confirmed in the renal pelvis and bladder with fluoroscopy and cystoscopy patient had bladder drained and she was subsequently returned to the recovery room in stable condition having tolerated procedure well with thus far little hematuria noted. Still have suggestion to proceed on with definitive surgical procedure for her UPJ obstruction and would not be an unreasonable to combine with stone removal at that time pending further surgical consultation
--- NOTE | 2020-09-08 14:22 | EKG ---
Merged With [facility] Test Date: 2020-09-07 Pat Name: Zeinab Morris Department: [facility] Room: 106 Gender: Female Arborer: : 1990 Requested By: Jairo Gamino Order Number: [id number] Reading MD: Moe Pablo M.D. Measurements Intervals [place] Rate: 58 P: 50 WV: 164 QRS: 31 QRSD: 92 T: 71 QT: 420 QTc: 413 Interpretive Statements SINUS RHYTHM Since previous ECG of 01-28-2020 NORMAL TRACING Electronically Signed On 09-08-2020 14:21:59 PDT by Moe Pablo M.D. /store/M0/[id number]
--- NOTE | 2020-09-08 17:04 | XRay Report ---
CLINICAL INFORMATION: STENT PLACEMENT COMPARISON: None. FINDINGS: Digital images from the OR were submitted. Final image shows left ureteral stent with the proximal pigtail overlying the expected location of left upper collecting system. Total fluoroscopy time 0.1 minute IMPRESSION: Left ureteral stent placement.. Total fluoroscopy time 0.1 minute. Interpreted and Authenticated by: Kedar Kyle 09/08/20
[2020-09-08] MEDS ORDERED: WARFARIN 5 MG TABLET PO ONE (18:00)
[2020-09-08] MEDS ORDERED: OLANZapine 5 MG TABLET PO SCH (21:00)
[2020-09-08] MEDS ORDERED: ENOXAPARIN 120 MG/0.8 ML SYRINGE SQ SCH (21:00)
[2020-09-08] MEDS ORDERED: 0.9 % SODIUM CHLORIDE 10 ML SYRINGE IV SCH (22:00)
[2020-09-09] MEDS ORDERED: ENOXAPARIN 100 MG/ML SYRINGE SQ SCH (09:00)
--- NOTE | 2020-09-12 10:51 | General Surgery Progress Note ---
SUBJECTIVE Subjective Patient information: Note initiated : 09/11/20 at 2:56 pm Service Date, if different from initiated Date: [] Patient: Zeinab Morris 30 y/o F admitted on for . Chief Complaint: [] Interval history: patient note to chart for date of service 09/08/2020 patient left after surgery against urologic plan and was not seen as planned later on 09/08/2020 after surgery for stent exchange. she was approved for discharge by hospitalist. she was not seen on 09/09/2020 as planned because she was gone and no note was able to be done therefore. patient was subsequently seen through the ER twice over last two day timeframe. Additional findings Additional findings: not done after surgery 09/08/2020 due to patient being discharged A/P Narrative A/P Narrative: ass: not able to be appropriately done due to patient no longer being inhouse on 08 September 2020 after surgery Plan - was to be as per post op plan to recheck labs and see in clinic for f/u and to restart anticoagulation as per gross hematuria clearing and proceed with definitive treatment of UPJ obstruction in [place] MARIJA Time Spent With Patient Time: Total time spent is greater than 50% in coordination of care (as kev nick) at patient's floor/unit and/or counseling patient:
== END 2020-09-08 19:15 | disposition home or self-care (01) ==
LOC: MEDSUR 15:14 → ED 15:14 → MEDSUR 21:05
PROVIDERS: ADMIT Internal Medicine; ATTEND Urology